=== PATIENT | male | born 1985 | race Caucasian/White ===

== ENCOUNTER 2017-07-06 12:37 | Inpatient (IN) | payer OTHER ==
[~2017-07-06] VITALS: Ht 182.9 cm; Wt 62.5 kg
--- NOTE | 2017-07-06 13:23 | EMERGENCY ROOM VISIT NOTE ---
History First contact with patient: 13:03 Chief Complaint: OTHER COMPLAINT Stated Complaint: NOTICED FOUND LUMPS AND PAIN History of Present Illness The patient is a 32 year old male who presents to the Emergency Room with complaints of painful masses in his groin that have been intermittent for the last several months. Occasionally they will get bigger and then decrease in size. The patient denies any urinary symptoms. He does note that sexual intercourse occasionally makes the pain worse. He denies any penile discharge. He denies any testicular pain. No fever or chills. He does have frequent night sweats. He has a mild cough, but that is because he is recovering from influenza. Review of Systems 10 system review performed and negative unless noted in HPI or below Past Medical/Surgical History Medical Problems: (1) Lymphadenopathy Otherwise healthy Family History Cancer, hypertension Social History Smoking Status: Current Every Day Smoker Alcohol Use: none Marital Status: Current/Historical Medications Miscellaneous Medications Ibuprofen (Advil), 200 MG PO Physical Exam Vital Signs Date Time Temp Pulse Resp B/P (MAP) Pulse Ox O2 Delivery O2 Flow Rate FiO2 07/06/17 15:59 77 18 122/72 100 Room Air 07/06/17 14:20 80 17 121/71 97 Room Air 07/06/17 12:57 36.9 103 18 117/74 98 Room Air Physical Exam VITALS: Vitals are noted on the nurse's note and reviewed by myself. Vital signs stable. GENERAL: 32-year-old male, in no acute distress, nondiaphoretic, well-developed well-nourished. SKIN: The skin was without rashes, erythema, edema, or bruising. HEAD: Normocephalic atraumatic. MOUTH: Mucous membranes moist. Tonsils are not enlarged. Pharynx without erythema or exudate. Uvula midline. Airway patent. Tongue does not deviate. NECK: Supple without nuchal rigidity. Submandibular lymphadenopathy noted bilaterally. Cervical spine is nontender. No JVD. HEART: Regular rate and rhythm without murmurs gallops or rubs. LUNGS: Clear to auscultation bilaterally without wheezes, rales or rhonchi. No accessory muscle use. ABDOMEN: Positive bowel sounds x 4.Soft, nontender, without organomegaly. No guarding or rebound tenderness. 2 palpable, mobile masses noted in the right groin approximately 1 cm in size. Slight tenderness to palpation noted. No erythema. MUSCULOSKELETAL: No muscle atrophy, erythema, or edema noted. Strength 5/5 throughout. NEURO: Patient was alert and oriented to person place and time. Normal sensation to touch. No focal neurological deficits. Medical Decision & Procedures ER Provider Diagnostic Interpretation: CXR IMPRESSION: 1. Patchy airspace consolidation is seen throughout both lungs, right greater than left. The appearance suggests pneumonia. Clinical correlation will be required and radiographic follow-up to resolution is recommended. 2. Suspect hilar adenopathy. Electronically signed by: Lam Hart M.D. 07/06/2017 2:13 PM Dictated Date/Time: 07/06/2017 2:12 PM The status of this report is Signed. Draft = Not yet reviewed or approved by Radiologist. Signed = Reviewed and approved by Radiologist. CT abd/pelvis IMPRESSION: Innumerable subcentimeter hepatic and splenic hypodense lesions with mild lymphadenopathy within the chest, abdomen, and pelvis and multiple nodular airspace opacities within the lung bases as described above. These findings suggest an atypical systemic infectious process including fungal or a bacterial process including tuberculosis. A lymphoma, metastatic disease, or possibly sarcoidosis could also have a similar appearance. Electronically signed by: Miky Johnson M.D. 07/06/2017 2:54 PM Dictated Date/Time: 07/06/2017 2:41 PM The status of this report is Signed. Draft = Not yet reviewed or approved by Radiologist. Signed = Reviewed and approved by Radiologist. <AttendingPhy></AttendingPhy> <FamilyPhy>No Doctor, Assigned</FamilyPhy> < PrimaryPhy>No Doctor, Assigned</PrimaryPhy> <UnitNumber>[id number]</UnitNumber> <VisitNumber>[id number]</VisitNumber> <PatientName>MIKY ORELLANA testicular US IMPRESSION: Slightly heterogenous bilateral testes. However, no intratesticular masses. Electronically signed by: Miky Johnson M.D. 07/06/2017 3:06 PM Dictated Date/Time: 07/06/2017 3:02 PM Laboratory Results 07/06/17 13:35 Red Blood Count 5.45, Mean Corpuscular Volume 88.3, Mean Corpuscular Hemoglobin 29.7, Mean Corpuscular Hemoglobin Concent 33.7, Mean Platelet Volume 9.2, Neutrophils (%) (Auto) 60.9, Lymphocytes (%) (Auto) 17.1, Monocytes (%) (Auto) 12.7, Eosinophils (%) (Auto) 8.1, Basophils (%) (Auto) 0.9, Neutrophils # (Auto ) 2.11, Lymphocytes # (Auto) 0.59, Monocytes # (Auto) 0.44, Eosinophils # (Auto ) 0.28, Basophils # (Auto) 0.03 07/06/17 13:35 Test 07/06/17 13:35 07/06/17 14:00 White Blood Count 3.46 K/uL (4.8-10.8) Red Blood Count 5.45 M/uL (4.7-6.1) Hemoglobin 16.2 g/dL (14.0-18.0) Hematocrit 48.1 % (42-52) Mean Corpuscular Volume 88.3 fL (80-100) Mean Corpuscular Hemoglobin 29.7 pg (25-34) Mean Corpuscular Hemoglobin Concent 33.7 g/dl (32-36) Platelet Count 246 K/uL (130-400) Mean Platelet Volume 9.2 fL (7.4-10.4) Neutrophils (%) (Auto) 60.9 % Lymphocytes (%) (Auto) 17.1 % Monocytes (%) (Auto) 12.7 % Eosinophils (%) (Auto) 8.1 % Basophils (%) (Auto) 0.9 % Neutrophils # (Auto) 2.11 K/uL (1.4-6.5) Lymphocytes # (Auto) 0.59 K/uL (1.2-3.4) Monocytes # (Auto) 0.44 K/uL (0.11-0.59) Eosinophils # (Auto) 0.28 K/uL (0-0.5) Basophils # (Auto) 0.03 K/uL (0-0.2) RDW Standard Deviation 42.3 fL (36.4-46.3) RDW Coefficient of Variation 13.1 % (11.5-14.5) Immature Granulocyte % (Auto) 0.3 % Immature Granulocyte # (Auto) 0.01 K/uL (0.00-0.02) Erythrocyte Sedimentation Rate 47 mm/hr (0-14) Prothrombin Time 11.1 SECONDS (9.0-12.0) Prothromb Time International Ratio 1.1 (0.9-1.1) Anion Gap 2.0 mmol/L (3-11) Est Creatinine Clear Calc Drug Dose 90.9 ml/min Estimated GFR () 109.9 Estimated GFR (Non- 94.8 BUN/Creatinine Ratio 9.2 (10-20) Calcium Level 9.0 mg/dl (8.5-10.1) Total Bilirubin 0.4 mg/dl (0.2-1) Aspartate Amino Transf (AST/SGOT) 43 U/L (15-37) Alanine Aminotransferase (ALT/SGPT) 45 U/L (12-78) Alkaline Phosphatase 337 U/L (45-117) Total Protein 8.8 gm/dl (6.4-8.2) Albumin 3.5 gm/dl (3.4-5.0) Globulin 5.3 gm/dl (2.5-4.0) Albumin/Globulin Ratio 0.7 (0.9-2) Procalcitonin 0.17 ng/ml (0-0.5) Urine Color YELLOW Urine Appearance CLEAR (CLEAR) Urine pH 6.5 (4.5-7.5) Urine Specific [place] 1.016 (1.000-1.030) Urine Protein NEG (NEG) Urine Glucose (UA) NEG (NEG) Urine Ketones NEG (NEG) Urine Occult Blood NEG (NEG) Urine Nitrite NEG (NEG) Urine Bilirubin NEG (NEG) Urine Urobilinogen NEG (NEG) Urine Leukocyte Esterase NEG (NEG) Medications Administered Medications (Trade) Dose Ordered Sig/Xuan Route Start Time Stop Time Status Last Admin Dose Admin Ibuprofen (Motrin Tab) 600 mg NOW STAT PO 07/06/17 16:06 07/06/17 16:07 DC 07/06/17 16:21 600 MG ED Course Patient was seen and examined Vital signs including blood pressure were reviewed medications list was verified with patient Labs were obtained, and a saline lock was established Imaging was performed and reviewed The patient was reassessed and resting comfortably. We discussed his results. He voiced understanding. The case was discussed with my supervising physician. It was then discussed with radiology. I discussed the case with case management and subsequently the [facility] team who kindly agreed to admit the patient for further workup and treatment Medical Decision Differential diagnosis: Lymphadenitis, infectious etiology, malignancy, benign lymphadenopathy This patient is a 32-year-old male presents to the emergency department with lymphadenopathy in his groin and night sweats. He is nontoxic in appearance. He is afebrile. He has had a cough for the last several weeks. His imaging shows pulmonary consolidations. There are also numerous lesions in the liver and spleen. Lymphadenopathy noted throughout. There is no leukocytosis. The etiology of the imaging is possibly malignancy versus sarcoidosis versus a bacterial/fungal infection. Given the fact that the patient does not have a PCP , I do not feel comfortable sending the patient out. I do not think that he will follow-up with a doctor. The patient will be admitted to the [facility] for further workup and treatment. This chart was completed in part utilizing [employer] Speech Voice Recognition software. Attempts were made to minimize the grammatical errors, random word insertions, pronoun errors and incomplete sentences. Any formal questions or concerns about the content, text or information contained within the body of this dictation should be directly addressed to the provider for clarification. Medication Reconcilliation Current Medication List: was personally reviewed by ar Blood Pressure Screening Patient's blood pressure: Normal blood pressure Consults Consulting Physician: [facility] Impression Primary Impression: Lymphadenopathy Departure Information Referrals No Doctor, Assigned (PCP) Patient Instructions My [facility]
[2017-07-06] MEDS ORDERED: IBUP-1050 PO (13:29)
[2017-07-06] MEDS ORDERED: OPTIRAY 320 IV PRN (13:30)
[2017-07-06 13:46] LABS: BASO % 0.9 %; BASO ABS # 0.03 K/uL (0-0.2); EOS % 8.1 %; EOS ABS # 0.28 K/uL (0-0.5); HEMATOCRIT 48.1 % (42-52); HEMOGLOBIN 16.2 g/dL (14.0-18.0); IG# 0.01 K/uL (0.00-0.02); LYMPH % 17.1 %; LYMPH ABS # 0.59 K/uL (1.2-3.4); MEAN CELL VOLUME 88.3 fL (80-100); MEAN CORPUSCULAR HEMOGLOBIN 29.7 pg (25-34); MEAN CORPUSCULAR HGB CONC 33.7 g/dl (32-36); MEAN PLATELET VOLUME 9.2 fL (7.4-10.4); MONO % 12.7 %; MONO ABS # 0.44 K/uL (0.11-0.59); NEUT % 60.9 %; NEUT ABS # 2.11 K/uL (1.4-6.5); PLATELET COUNT 246 K/uL (130-400); RED CELL DISTRIBUTION WIDTH CV 13.1 % (11.5-14.5); RED CELL DISTRIBUTION WIDTH SD 42.3 fL (36.4-46.3); WHITE BLOOD COUNT 3.46 K/uL (4.8-10.8)
[2017-07-06 14:07] LABS: ALBUMIN 3.5 gm/dl (3.4-5.0); CREATININE 1.05 mg/dl (0.60-1.40); POTASSIUM 4.6 mmol/L (3.5-5.1)
[2017-07-06 14:10] LABS: TOTAL PROTEIN 8.8 gm/dl (6.4-8.2)
--- NOTE | 2017-07-06 14:14 | DIAGNOSTIC IMAGING REPORT ---
TWO VIEW CHEST CLINICAL HISTORY: Lymphadenopathy. Night sweats. FINDINGS: PA and lateral chest radiographs are obtained. No prior studies are available for comparison at the time of dictation. The heart is normal in size. Fullness of the derick suggests lymphadenopathy. Patchy airspace consolidation is identified throughout the right lung. Patchy airspace opacities are also seen in the left upper and left lower lung. No pleural effusion is identified. There is no pneumothorax. The bony thorax appears intact. IMPRESSION: 1. Patchy airspace consolidation is seen throughout both lungs, right greater than left. The appearance suggests pneumonia. Clinical correlation will be required and radiographic follow-up to resolution is recommended. 2. Suspect hilar adenopathy. Electronically signed by: Lam Hart M.D. 07/06/2017 2:13 PM Dictated Date/Time: 07/06/2017 2:12 PM
--- NOTE | 2017-07-06 14:56 | DIAGNOSTIC IMAGING REPORT ---
ABDOMEN AND PELVIS CT WITH IV CONTRAST CT DOSE: 321.43 mGycm HISTORY: lymphadenopathy in groin, night sweats TECHNIQUE: Multiaxial CT images of the abdomen and pelvis were performed following the use of intravenous contrast. A dose lowering technique was utilized adhering to the principles of ALARA. COMPARISON STUDY: Chest 07/06/2017. FINDINGS: Multiple tree-in-bud nodular opacities seen throughout the lung bases and a few scattered irregular nodular airspace opacities seen within the lung bases. Dominant irregular nodule seen within the right lower lobe measures 14 mm. No pneumoperitoneum. No pneumatosis. No suspicious lytic or blastic osseous lesions. There is enlarged anterior pericardial lymph node measuring 18 x 1 cm. There are few prominent pleural/paravertebral lymph nodes with the largest on the right on image 33 measuring 12 x 6 mm. There are innumerable subcentimeter hypodense lesions seen scattered throughout the liver and spleen. The pancreas, adrenal glands, and kidneys are unremarkable. No hydronephrosis. There is periportal lymphadenopathy. Dominant periportal lymph node measures 2.5 x 1.8 cm. Mildly enlarged retroperitoneal lymphadenopathy. There are few mildly enlarged bilateral external iliac and inguinal lymph nodes. Dominant left external iliac lymph node measures 2.1 x 1.2 cm. Normal bladder. No pelvic free fluid. No bowel wall thickening or obstruction. Normal appendix. IMPRESSION: Innumerable subcentimeter hepatic and splenic hypodense lesions with mild lymphadenopathy within the chest, abdomen, and pelvis and multiple nodular airspace opacities within the lung bases as described above. These findings suggest an atypical systemic infectious process including fungal or a bacterial process including tuberculosis. A lymphoma, metastatic disease, or possibly sarcoidosis could also have a similar appearance. Electronically signed by: Miky Johnson M.D. 07/06/2017 2:54 PM Dictated Date/Time: 07/06/2017 2:41 PM
--- NOTE | 2017-07-06 15:07 | DIAGNOSTIC IMAGING REPORT ---
TESTICULAR ULTRASOUND HISTORY: Lymphadenopathy in groin, testicular pain COMPARISON: None. FINDINGS: Right testis: 4.2 x 2.2 x 2.3 cm. Slightly heterogeneous, however, there are no intratesticular masses. Normal color flow. No hydrocele. The epididymis is unremarkable. Left testis: 4.1 x 2.5 x 1.9 cm. Slightly heterogeneous, however, there are no intratesticular masses. Normal color flow. No hydrocele. The epididymis is unremarkable. IMPRESSION: Slightly heterogenous bilateral testes. However, no intratesticular masses. Electronically signed by: Miky Johnson M.D. 07/06/2017 3:06 PM Dictated Date/Time: 07/06/2017 3:02 PM
[2017-07-06] MEDS ORDERED: IBUPROFEN 600 MG TAB PO STA (16:06)
[2017-07-06] MEDS ORDERED: ONDANSETRON INJ 2 MG/ML 2 ML VIAL IV PRN (16:45)
[2017-07-06] MEDS ORDERED: MAGNESIUM HYDROXIDE SUSP 30 ML UDC PO PRN (16:45)
[2017-07-06] MEDS ORDERED: ZOLPIDEM TARTRATE 5 MG TAB PO PRN (16:45)
[2017-07-06] MEDS ORDERED: ALUMINUM/MAGNESIUM/SIMETH (MAALOX MAX) 30 ML UDC PO PRN (16:45)
[2017-07-06] MEDS ORDERED: POLYETHYLENE (MIRALAX) 17 GM PACK PO PRN (16:45)
[2017-07-06 17:10] LABS: INR 1.1 (0.9-1.1)
--- NOTE | 2017-07-06 17:18 | History and Physical ---
History & Physical Date & Time of Service: Jul 06, 2017 at 17:15 Chief Complaint: Noticed Found Lumps And Pain Primary Care Physician: No Doctor, Assigned History of Present Illness Source: patient This is a 32-year-old male with no known prior medical history. Has not been following with any physician in the past 20 years. ER for evaluation of painful swelling nodes on right inguinal region. Patient mentions he had swelling approximately 6-7 years ago and then they disappeared. For the last few weeks he noticed more weak and fatigue night sweats intermitted fever chills. Developed very painful lymphadenopathy on the right groin region pain radiation radiates down to his scrotum and also inner part of the right thigh. Patient denies of any trauma or injury. Was diagnosed with influenza a week ago evaluated at urgent care , completed Tamiflu Continues to have dry cough persistent malaise weakness ,body aches and joint pain. CT abdomen pelvis contrast study done in the ER showed multiple less than centimeter hepatic and splenic hypodense lesion, with lymphadenopathy in the chest abdomen and pelvis concerned for lymphoma versus sarcoidosis. Testicular ultrasound was negative for any mass. Patient denies of any recent travel history Denies of history of intravenous drug abuse Was in [facility] as a teenager At present unemployed smokes a pack of cigarettes a day for last 10-15 years Chews tobacco Social History Smoking Status: Current Every Day Smoker Marital Status: Allergies Coded Allergies: Mushroom (Unverified Allergy, Severe, THROAT SWELLING, 09/23/15) Tramadol (Unverified Allergy, Severe, SEVERE VOMITING, 09/23/15) Home Medications Miscellaneous Medications Ibuprofen (Advil), 200 MG PO Review of Systems Constitutional: + chills, + sweats, + weight loss, + weakness, + fatigue Respiratory: + cough (Dry nonproductive), + shortness of breath Cardiovascular: No chest pain, No orthopnea, No PND, No edema, No claudication , No palpitations, No problem reported Musculoskeletal: + joint pain, + muscle pain Genitourinary - Male: No hematuria, No dysuria, No urinary frequency, No urinary urgency, No urinary hesitancy, No urinary retention, No urinary incontinence, No penile discharge, No lesions, No impotence, No problem reported Neurologic: + weakness Psychiatric: + anxiety Endocrine: + fatigue Hematologic / Lymphatic: + swollen lymph nodes (Painful swollen right inguinal area lymphadenopathy), + night sweats Physical Exam Vital Signs Date Time Temp Pulse Resp B/P (MAP) Pulse Ox O2 Delivery O2 Flow Rate FiO2 07/06/17 15:59 77 18 122/72 100 Room Air 07/06/17 14:20 80 17 121/71 97 Room Air 07/06/17 12:57 36.9 103 18 117/74 98 Room Air General Appearance: no apparent distress, + thin Head: normocephalic, atraumatic Eyes: normal inspection, PERRL, EOMI, sclerae normal ENT: normal ENT inspection, hearing grossly normal Neck: + adenopathy present (History of cervical adenopathy) Respiratory/Chest: chest non-tender, lungs clear, normal breath sounds, no respiratory distress Cardiovascular: regular rate, rhythm, no edema, no JVD, no murmur Abdomen/GI: normal bowel sounds, non tender, soft Back: no CVA tenderness Extremities/Musculoskelatal: normal capillary refill, no pedal edema Neurologic/Psych: no motor/sensory deficits, alert, oriented x 3, + depressed affect Lymphatic: + axillary node abnormality, + cervical node abnormality, + inguinal node abnormality (Right inguinal area and multiple lymph nodes/tender to palpate /no overlying skin erythema noted) Diagnostics Laboratory Results Results Past 24 Hours Test 07/06/17 13:35 07/06/17 14:00 Range/Units White Blood Count 3.46 4.8-10.8 K/uL Red Blood Count 5.45 4.7-6.1 M/uL Hemoglobin 16.2 14.0-18.0 g/dL Hematocrit 48.1 42-52 % Mean Corpuscular Volume 88.3 80-100 fL Mean Corpuscular Hemoglobin 29.7 25-34 pg Mean Corpuscular Hemoglobin Concent 33.7 32-36 g/dl Platelet Count 246 130-400 K/uL Mean Platelet Volume 9.2 7.4-10.4 fL Neutrophils (%) (Auto) 60.9 % Lymphocytes (%) (Auto) 17.1 % Monocytes (%) (Auto) 12.7 % Eosinophils (%) (Auto) 8.1 % Basophils (%) (Auto) 0.9 % Neutrophils # (Auto) 2.11 1.4-6.5 K/uL Lymphocytes # (Auto) 0.59 1.2-3.4 K/uL Monocytes # (Auto) 0.44 0.11-0.59 K/uL Eosinophils # (Auto) 0.28 0-0.5 K/uL Basophils # (Auto) 0.03 0-0.2 K/uL RDW Standard Deviation 42.3 36.4-46.3 fL RDW Coefficient of Variation 13.1 11.5-14.5 % Immature Granulocyte % (Auto) 0.3 % Immature Granulocyte # (Auto) 0.01 0.00-0.02 K/uL Erythrocyte Sedimentation Rate 47 0-14 mm/hr Prothrombin Time 11.1 9.0-12.0 SECONDS Prothromb Time International Ratio 1.1 0.9-1.1 Sodium Level 134 136-145 mmol/L Potassium Level 4.6 3.5-5.1 mmol/L Chloride Level 101 98-107 mmol/L Carbon Dioxide Level 31 21-32 mmol/L Anion Gap 2.0 3-11 mmol/L Blood Urea Nitrogen 10 7-18 mg/dl Creatinine 1.05 0.60-1.40 mg/dl Est Creatinine Clear Calc Drug Dose 90.9 ml/min Estimated GFR () 109.9 Estimated GFR (Non- 94.8 BUN/Creatinine Ratio 9.2 10-20 Random Glucose 73 70-99 mg/dl Calcium Level 9.0 8.5-10.1 mg/dl Total Bilirubin 0.4 0.2-1 mg/dl Aspartate Amino Transf (AST/SGOT) 43 15-37 U/L Alanine Aminotransferase (ALT/SGPT) 45 12-78 U/L Alkaline Phosphatase 337 45-117 U/L Total Protein 8.8 6.4-8.2 gm/dl Albumin 3.5 3.4-5.0 gm/dl Globulin 5.3 2.5-4.0 gm/dl Albumin/Globulin Ratio 0.7 0.9-2 Urine Color YELLOW Urine Appearance CLEAR CLEAR Urine pH 6.5 4.5-7.5 Urine Specific [place] 1.016 1.000-1.030 Urine Protein NEG NEG Urine Glucose (UA) NEG NEG Urine Ketones NEG NEG Urine Occult Blood NEG NEG Urine Nitrite NEG NEG Urine Bilirubin NEG NEG Urine Urobilinogen NEG NEG Urine Leukocyte Esterase NEG NEG Microbiology Results 07/06/17 Blood Culture, Ordered Pending 07/06/17 Blood Culture, Ordered Pending Diagnostic Radiology CT CHEST WITH CONTRAST : IMPRESSION: 1. Innumerable perilymphatic distribution of pulmonary nodules throughout all lobes of the lungs bilaterally are noted within an upper and mid lung zone predominant distribution with confluent nodules forming multifocal areas of consolidation. These findings in addition to enlarged subpectoral, axillary, mediastinal and hilar adenopathy is suspicious for sarcoidosis. Additional differential considerations would include but are not limited to lymphangitic carcinomatosis from unknown primary neoplasm or lymphocytic interstitial pneumonia among other etiologies. 2. Heterogeneous appearance of the liver and spleen correlates with innumerable hypoattenuating lesions seen on CT abdomen and pelvis of same day. ABDOMEN AND PELVIS CT WITH IV CONTRAST CT DOSE: 321.43 mGycm HISTORY: lymphadenopathy in groin, night sweats TECHNIQUE: Multiaxial CT images of the abdomen and pelvis were performed following the use of intravenous contrast. A dose lowering technique was utilized adhering to the principles of ALARA. COMPARISON STUDY: Chest 07/06/2017. FINDINGS: Multiple tree-in-bud nodular opacities seen throughout the lung bases and a few scattered irregular nodular airspace opacities seen within the lung bases. Dominant irregular nodule seen within the right lower lobe measures 14 mm. No pneumoperitoneum. No pneumatosis. No suspicious lytic or blastic osseous lesions. There is enlarged anterior pericardial lymph node measuring 18 x 1 cm. There are few prominent pleural/paravertebral lymph nodes with the largest on the right on image 33 measuring 12 x 6 mm. There are innumerable subcentimeter hypodense lesions seen scattered throughout the liver and spleen. The pancreas, adrenal glands, and kidneys are unremarkable. No hydronephrosis. There is periportal lymphadenopathy. Dominant periportal lymph node measures 2.5 x 1.8 cm. Mildly enlarged retroperitoneal lymphadenopathy. There are few mildly enlarged bilateral external iliac and inguinal lymph nodes. Dominant left external iliac lymph node measures 2.1 x 1.2 cm. Normal bladder. No pelvic free fluid. No bowel wall thickening or obstruction. Normal appendix. IMPRESSION: Innumerable subcentimeter hepatic and splenic hypodense lesions with mild lymphadenopathy within the chest, abdomen, and pelvis and multiple nodular airspace opacities within the lung bases as described above. These findings suggest an atypical systemic infectious process including fungal or a bacterial process including tuberculosis. A lymphoma, metastatic disease, or possibly sarcoidosis could also have a similar appearance. Electronically signed by: Miky Johnson M.D. 07/06/2017 2:54 PM Dictated Date/Time: 07/06/2017 2:41 PM X-ray TWO VIEW CHEST CLINICAL HISTORY: Lymphadenopathy. Night sweats. FINDINGS: PA and lateral chest radiographs are obtained. No prior studies are available for comparison at the time of dictation. The heart is normal in size. Fullness of the derick suggests lymphadenopathy. Patchy airspace consolidation is identified throughout the right lung. Patchy airspace opacities are also seen in the left upper and left lower lung. No pleural effusion is identified. There is no pneumothorax. The bony thorax appears intact. IMPRESSION: 1. Patchy airspace consolidation is seen throughout both lungs, right greater than left. The appearance suggests pneumonia. Clinical correlation will be required and radiographic follow-up to resolution is recommended. 2. Suspect hilar adenopathy. TESTICULAR ULTRASOUND HISTORY: Lymphadenopathy in groin, testicular pain COMPARISON: None. FINDINGS: Right testis: 4.2 x 2.2 x 2.3 cm. Slightly heterogeneous, however, there are no intratesticular masses. Normal color flow. No hydrocele. The epididymis is unremarkable. Left testis: 4.1 x 2.5 x 1.9 cm. Slightly heterogeneous, however, there are no intratesticular masses. Normal color flow. No hydrocele. The epididymis is unremarkable. IMPRESSION: Slightly heterogenous bilateral testes. However, no intratesticular masses. Impression Assessment and Plan 1.Generalized lymphadenopathy: -Presented with months of weakness fatigue night sweats -Painful right groin lymphadenopathy -CT of abdomen chest findings as above - will need lymph node biopsy to confirm diagnosis of sarcoidosis versus lymphoma versus infectious process -Ordered for HIV hep C tuberculosis test -Heme on evaluation requested -Peripheral blood smear in a.m. lab 1.Hyponatremia: Possible secondary to dehydration Ordered ordered for IV fluids with normal saline Repeat BMP in a.m. 3. Nonproductive cough. CT chest shows possible bronchitis with tree-in-bud appearance Report of ongoing fever chills/cough Order for empiric antibiotic with Rocephin and Zithromax -Ordered sputum and blood culture CODE STATUS full code DVT prophylaxis: Subcu Lovenox Disposition: Expected to be discharged home when medically stable Will need continued outpatient hematology/oncology follow-up We will need to established with family physician to address ongoing medical issues Level of Care Med/Surg Resuscitation Status FULL RESUSCITATION VTE Prophylaxis VTE Risk Assessment Done? Y/N: Yes Risk Level: Moderate Given or contraindicated: Enoxaparin (Lovenox)SQ Additional Copies To Davina Alegria MD
--- NOTE | 2017-07-06 17:52 | DIAGNOSTIC IMAGING REPORT ---
(CHEST) THORAX WITHOUT CT DOSE: 266.32 mGy.cm CLINICAL HISTORY: 32 years-old Male with GOT IV CONTRAST FOR CT ABDOMEN/PELVIS . Follow-up study in a patient with lymphadenopathy and night sweats TECHNIQUE: Multiaxial CT images of the chest were performed without contrast. A dose lowering technique was utilized adhering to the principles of ALARA. COMPARISON: CT abdomen and pelvis, chest radiographs and testicular ultrasound of same day FINDINGS: Thyroid is homogeneous. Multiple enlarged bilateral subpectoral, axillary, mediastinal and hilar adenopathy. For example, conglomerate right hilar adenopathy measures up to 3.6 x 2.2 cm on image 149 series 4. Enlarged right paratracheal lymph nodes measure up to 2.0 x 1.4 cm on image 81 of series 4. Enlarged prevascular and AP window lymph nodes are present Prominent subpleural lymph nodes of the level the medial right lung base are also noted measuring up to 5 mm in short axis. Heart is normal in size without pericardial effusion. Thoracic aorta appears normal in course and caliber. The unopacified pulmonary chill tree is unremarkable. There is no pleural effusion or pneumothorax. There are innumerable lymphatic distribution of pulmonary nodules throughout the all lobes within the bilaterally which are seen layering along the fissures and bronchovascular bundles. Many of these nodules conglomerate to make small consolidative type opacities, measuring up to 1.3 x 0.9 cm within the right lower lobe, image 243 series 4. There is somewhat of an upper lung zone predominant distribution of these nodules. No cavitary lung lesions are identified. The central airways appear patent. Diffusely heterogeneous appearance of the liver and spleen correlates with the previously described innumerable low attenuating lesions seen on comparison CT abdomen and pelvis of same day. There is retained contrast within the left renal collecting system without definite hydronephrosis. Adenopathy of the upper abdomen noted in addition to epicardial lymph nodes measuring up to 1.7 x 0.8 cm. Soft tissues are unremarkable with mild bilateral gynecomastia. No suspicious bony lesions identified. IMPRESSION: 1. Innumerable perilymphatic distribution of pulmonary nodules throughout all lobes of the lungs bilaterally are noted within an upper and mid lung zone predominant distribution with confluent nodules forming multifocal areas of consolidation. These findings in addition to enlarged subpectoral, axillary, mediastinal and hilar adenopathy is suspicious for sarcoidosis. Additional differential considerations would include but are not limited to lymphangitic carcinomatosis from unknown primary neoplasm or lymphocytic interstitial pneumonia among other etiologies. 2. Heterogeneous appearance of the liver and spleen correlates with innumerable hypoattenuating lesions seen on CT abdomen and pelvis of same day. Electronically signed by: Vlad Valdez M.D. 07/06/2017 5:51 PM Dictated Date/Time: 07/06/2017 5:37 PM
[2017-07-06] MEDS: SODIUM CHLORIDE 0.9% 1000ML 1,000 ML IV SCH (18:37)
[2017-07-06 18:57] VITALS: BP 107/72; PULSE 70; TEMP 37; O2SAT 96; Ht 182.9 cm; Wt 62.5 kg
[2017-07-06] MEDS ORDERED: CEFTRIAXONE SOD INJ 1 GM in DEXTROSE 5% ADD-VANTAGE 50ML 50 ML IV SCH (19:00)
[2017-07-06 19:02] VITALS: BP 107/72; PULSE 70; TEMP 37; O2SAT 96
[2017-07-06] MEDS: ACETAMINOPHEN 325 MG TAB PO PRN (19:55)
[2017-07-06] MEDS: AZITHROMYCIN 250 MG TAB PO SCH (19:56)
[2017-07-06] MEDS ORDERED: ENOXAPARIN 40 MG/0.4 ML SYR SQ SCH (21:00)
[2017-07-06 23:55] VITALS: BP 111/72; PULSE 67; TEMP 36.7; O2SAT 96
[2017-07-07] MEDS: SODIUM CHLORIDE 0.9% 1000ML 1,000 ML IV SCH (03:53)
[2017-07-07 05:42] LABS: HEMATOCRIT 42.9 % (42-52); HEMOGLOBIN 14.7 g/dL (14.0-18.0); MEAN CELL VOLUME 87.7 fL (80-100); MEAN CORPUSCULAR HEMOGLOBIN 30.1 pg (25-34); MEAN CORPUSCULAR HGB CONC 34.3 g/dl (32-36); MEAN PLATELET VOLUME 8.7 fL (7.4-10.4); PLATELET COUNT 198 K/uL (130-400); RED CELL DISTRIBUTION WIDTH CV 13.1 % (11.5-14.5); RED CELL DISTRIBUTION WIDTH SD 42.1 fL (36.4-46.3); WHITE BLOOD COUNT 3.52 K/uL (4.8-10.8)
[2017-07-07 06:14] LABS: ALBUMIN 3.1 gm/dl (3.4-5.0); ALT/SGPT 41 U/L (12-78); AST/SGOT 42 U/L (15-37); BLOOD UREA NITROGEN 15 mg/dl (7-18); CALCIUM 8.3 mg/dl (8.5-10.1); CARBON DIOXIDE 31 mmol/L (21-32); CREATININE 1.07 mg/dl (0.60-1.40); GLUCOSE 79 mg/dl (70-99); POTASSIUM 4.6 mmol/L (3.5-5.1); SODIUM 136 mmol/L (136-145); URIC ACID 4.5 mg/dl (2.6-7.2)
[2017-07-07 06:16] LABS: ALKALINE PHOSPHATASE 306 U/L (45-117)
[2017-07-07 07:52] VITALS: BP 105/69; PULSE 72; TEMP 36.4; O2SAT 97
[2017-07-07] MEDS: AZITHROMYCIN 250 MG TAB PO SCH (07:59)
[2017-07-07] MEDS: ACETAMINOPHEN 325 MG TAB PO PRN ×2 (08:04→16:15)
[2017-07-07 08:17] VITALS: O2SAT 97
[2017-07-07 08:41] LABS: HEP C IGG 13 YRS+OLDER_RFLX NEG (NEG)
--- NOTE | 2017-07-07 14:16 | Surgery Consultation ---
Consultation Date of Consultation: Jul 07, 2017. Attending Physician: Ashtyn Pedroza M.D. Reason for Consultation: The patient is a 32 year old male who presents to the Emergency Room with complaints of painful masses in his groin that have been intermittent for the last several months. Occasionally they will get bigger and then decrease in size. The patient denies any urinary symptoms. He does note that sexual intercourse occasionally makes the pain worse. He denies any penile discharge. He denies any testicular pain. No fever or chills. He does have frequent night sweats. He has a mild cough, but that is because he is recovering from influenza. I got a call for consult biopsy enlarge lymph node at right groin, I saw pt at bedside, I reviewed pt's H/P with pt, pt had right groin large lymph node for 6- 7 years, pt has some night sweat, no weight loss, no diarrhea, no cough, Social History Smoking Status: Current Every Day Smoker (one pack/day) Smokeless Tobacco Use: No Alcohol Use: occasionally Drug Use: none Marital Status: Allergies Coded Allergies: Mushroom (Unverified Allergy, Severe, THROAT SWELLING, 09/23/15) Tramadol (Unverified Allergy, Severe, SEVERE VOMITING, 09/23/15) Home Medications Miscellaneous Medications Ibuprofen (Advil), 200 MG PO Current Inpatient Medications Current Inpatient Medications Medications (Trade) Dose Ordered Sig/Xuan Route Start Time Stop Time Status Last Admin Dose Admin Ioversol (Optiray 320) 111 ml UD PRN IV 07/06/17 13:30 07/10/17 13:29 Enoxaparin Sodium (Lovenox Inj) 40 mg QPM SQ 07/06/17 21:00 08/05/17 20:59 Acetaminophen (Tylenol Tab) 650 mg Q4H PRN PO 07/06/17 16:45 08/05/17 16:44 07/07/17 08:04 650 MG Al Hydrox/Mg Hydrox/Simethicone (Maalox Max Susp) 15 ml Q4H PRN PO 07/06/17 16:45 08/05/17 16:44 Magnesium Hydroxide (Milk Of Magnesia Susp) 30 ml Q6H PRN PO 07/06/17 16:45 08/05/17 16:44 Polyethylene (Miralax Powder Packet) 17 gm DAILY PRN PO 07/06/17 16:45 08/05/17 16:44 Zolpidem Tartrate (Ambien Tab) 5 mg HSZ PRN PO 07/06/17 16:45 08/05/17 16:44 Ondansetron HCl (Zofran Inj) 4 mg Q6H PRN IV 07/06/17 16:45 08/05/17 16:44 Azithromycin (Zithromax Tab) 500 mg QAM PO 07/06/17 20:00 07/13/17 19:59 07/07/17 07:59 500 MG Prednisone (PredniSONE TAB) 40 mg DAILY PO 07/07/17 08:00 08/06/17 07:59 07/07/17 07:59 40 MG Nicotine (Nicoderm Cq 21MG Patch) 1 patch QAM TD 07/07/17 14:00 08/06/17 13:59 Miscellaneous (Remove Nicoderm Patch) 1 ea HS N/A 07/07/17 21:00 08/06/17 20:59 Review of Systems Constitutional: + sweats Eyes: No worsening of vision, No eye pain, No redness, No discharge, No diplopia, No problem reported ENT: No hearing loss, No unusual epistaxis, No nasal symptoms, No sore throat, No tinnitus, No dental problems, No trouble swallowing, No problem reported Respiratory: No cough, No sputum, No wheezing, No shortness of breath, No dyspnea on exertion, No dyspnea at rest, No hemoptysis, No problem reported Cardiovascular: No chest pain, No orthopnea, No PND, No edema, No claudication , No palpitations, No problem reported Abdomen: No pain, No nausea, No vomiting, No diarrhea, No constipation, No GI bleeding, No problem reported Musculoskeletal: No joint pain, No muscle pain, No swelling, No calf pain, No problem reported Genitourinary - Male: No hematuria, No dysuria, No urinary frequency, No urinary urgency, No urinary hesitancy, No urinary retention, No urinary incontinence, No penile discharge, No lesions, No impotence, No problem reported Neurologic: No memory loss, No paralysis, No weakness, No numbness/tingling, No vertigo, No balance problems, No problem reported Psychiatric: No depression symptoms, No anhedonism, No anxiety, No insomnia, No substance abuse, No problem reported Endocrine: No fatigue, No excessive thirst, No excessive urination, No problem reported Hematologic / Lymphatic: No abnormal bleeding/bruising, No clotting problems, No swollen lymph nodes, No night sweats, No problem reported Physical Exam Date Time Temp Pulse Resp B/P (MAP) Pulse Ox O2 Delivery O2 Flow Rate FiO2 07/07/17 08:17 97 Room Air 07/07/17 07:52 36.4 72 18 105/69 (81) 97 Room Air 07/07/17 00:00 Room Air 07/06/17 23:55 36.7 67 18 111/72 (85) 96 Room Air 07/06/17 19:02 37.0 70 18 107/72 (84) 96 Room Air 07/06/17 18:57 37.0 70 18 107/72 96 Room Air 07/06/17 17:56 75 18 109/77 99 Room Air 07/06/17 15:59 77 18 122/72 100 Room Air 07/06/17 14:20 80 17 121/71 97 Room Air General Appearance: WD/WN, no apparent distress Eyes: normal inspection ENT: normal ENT inspection Neck: supple, no adenopathy Respiratory/Chest: chest non-tender, lungs clear Cardiovascular: regular rate, rhythm, no edema, no gallop, no JVD, no murmur Abdomen/GI: normal bowel sounds, non tender, soft, no organomegaly, no pulsatile mass (enlarge right groin lymph nodes , size 2x2cm, some tenderness, no redmness, ) Extremities/Musculoskelatal: normal inspection, no calf tenderness, normal capillary refill Neurologic/Psych: no motor/sensory deficits, alert, normal mood/affect Skin: normal color, warm/dry, no rash Lymphatic: + inguinal node abnormality Laboratory Results Last 24 Hours Test 07/07/17 05:20 White Blood Count 3.52 K/uL Red Blood Count 4.89 M/uL Hemoglobin 14.7 g/dL Hematocrit 42.9 % Mean Corpuscular Volume 87.7 fL Mean Corpuscular Hemoglobin 30.1 pg Mean Corpuscular Hemoglobin Concent 34.3 g/dl RDW Standard Deviation 42.1 fL RDW Coefficient of Variation 13.1 % Platelet Count 198 K/uL Mean Platelet Volume 8.7 fL Peripheral Blood Smear Path Consult Sodium Level 136 mmol/L Potassium Level 4.6 mmol/L Chloride Level 104 mmol/L Carbon Dioxide Level 31 mmol/L Anion Gap 2.0 mmol/L Blood Urea Nitrogen 15 mg/dl Creatinine 1.07 mg/dl Est Creatinine Clear Calc Drug Dose 89.2 ml/min Estimated GFR () 107.4 Estimated GFR (Non- 92.7 BUN/Creatinine Ratio 14.0 Random Glucose 79 mg/dl Uric Acid 4.5 mg/dl Calcium Level 8.3 mg/dl Total Bilirubin 0.4 mg/dl Direct Bilirubin < 0.1 mg/dl Aspartate Amino Transf (AST/SGOT) 42 U/L Alanine Aminotransferase (ALT/SGPT) 41 U/L Alkaline Phosphatase 306 U/L Lactate Dehydrogenase 243 U/L Total Protein 8.0 gm/dl Albumin 3.1 gm/dl Globulin 4.9 gm/dl Albumin/Globulin Ratio 0.6 Hepatitis B Surface Antigen NEG Hepatitis C Antibody NEG Assessment & Plan CT scan-FINDINGS: Multiple tree-in-bud nodular opacities seen throughout the lung bases and a few scattered irregular nodular airspace opacities seen within the lung bases. Dominant irregular nodule seen within the right lower lobe measures 14 mm. No pneumoperitoneum. No pneumatosis. No suspicious lytic or blastic osseous lesions. There is enlarged anterior pericardial lymph node measuring 18 x 1 cm. There are few prominent pleural/paravertebral lymph nodes with the largest on the right on image 33 measuring 12 x 6 mm. There are innumerable subcentimeter hypodense lesions seen scattered throughout the liver and spleen. The pancreas, adrenal glands, and kidneys are unremarkable. No hydronephrosis. There is periportal lymphadenopathy. Dominant periportal lymph node measures 2.5 x 1.8 cm. Mildly enlarged retroperitoneal lymphadenopathy. There are few mildly enlarged bilateral external iliac and inguinal lymph nodes. Dominant left external iliac lymph node measures 2.1 x 1.2 cm. Normal bladder. No pelvic free fluid. No bowel wall thickening or obstruction. Normal appendix. IMPRESSION: Innumerable subcentimeter hepatic and splenic hypodense lesions with mild lymphadenopathy within the chest, abdomen, and pelvis and multiple nodular airspace opacities within the lung bases as described above. These findings suggest an atypical systemic infectious process including fungal or a bacterial process including tuberculosis. A lymphoma, metastatic disease, or possibly sarcoidosis could also have a similar appearance. U/S study-FINDINGS: Right testis: 4.2 x 2.2 x 2.3 cm. Slightly heterogeneous, however, there are no intratesticular masses. Normal color flow. No hydrocele. The epididymis is unremarkable. Left testis: 4.1 x 2.5 x 1.9 cm. Slightly heterogeneous, however, there are no intratesticular masses. Normal color flow. No hydrocele. The epididymis is unremarkable. IMPRESSION: Slightly heterogenous bilateral testes. However, no intratesticular masses. CT scan- chest-FINDINGS: Thyroid is homogeneous. Multiple enlarged bilateral subpectoral, axillary, mediastinal and hilar adenopathy. For example, conglomerate right hilar adenopathy measures up to 3.6 x 2.2 cm on image 149 series 4. Enlarged right paratracheal lymph nodes measure up to 2.0 x 1.4 cm on image 81 of series 4. Enlarged prevascular and AP window lymph nodes are present Prominent subpleural lymph nodes of the level the medial right lung base are also noted measuring up to 5 mm in short axis. Heart is normal in size without pericardial effusion. Thoracic aorta appears normal in course and caliber. The unopacified pulmonary chill tree is unremarkable. There is no pleural effusion or pneumothorax. There are innumerable lymphatic distribution of pulmonary nodules throughout the all lobes within the bilaterally which are seen layering along the fissures and bronchovascular bundles. Many of these nodules conglomerate to make small consolidative type opacities, measuring up to 1.3 x 0.9 cm within the right lower lobe, image 243 series 4. There is somewhat of an upper lung zone predominant distribution of these nodules. No cavitary lung lesions are identified. The central airways appear patent. Diffusely heterogeneous appearance of the liver and spleen correlates with the previously described innumerable low attenuating lesions seen on comparison CT abdomen and pelvis of same day. There is retained contrast within the left renal collecting system without definite hydronephrosis. Adenopathy of the upper abdomen noted in addition to epicardial lymph nodes measuring up to 1.7 x 0.8 cm. Soft tissues are unremarkable with mild bilateral gynecomastia. No suspicious bony lesions identified. IMPRESSION: 1. Innumerable perilymphatic distribution of pulmonary nodules throughout all lobes of the lungs bilaterally are noted within an upper and mid lung zone predominant distribution with confluent nodules forming multifocal areas of consolidation. These findings in addition to enlarged subpectoral, axillary, mediastinal and hilar adenopathy is suspicious for sarcoidosis. Additional differential considerations would include but are not limited to lymphangitic carcinomatosis from unknown primary neoplasm or lymphocytic interstitial pneumonia among other etiologies. 2. Heterogeneous appearance of the liver and spleen correlates with innumerable hypoattenuating lesions seen on CT abdomen and pelvis of same day. Assessment: pt is a 32 year old male who was admitted to hospital for right groin pain for 6-7 years, IMP: lymphadenopathy I recommend to do right groin lymph node biopsy tomorrow, D ?w benefits, risks and alternatives of the surgery, the risks- infection, bleeding, pt understood, he agrees with the plan, I answered all questions, NPO after MN,
[2017-07-07 14:52] VITALS: BP 114/76; PULSE 76; TEMP 36.7; O2SAT 98
[2017-07-07] MEDS: NICOTINE 21 MG/24 HR TDSY TD SCH (16:11)
--- NOTE | 2017-07-07 16:48 | Progress Note ---
Internal Med Progress Note Date of Service: Jul 07, 2017. Provider Documentation: SUBJECTIVE: Very anxious, wants to be discharged home as soon as possible Cough has improved No fevers or chills Ongoing pain and discomfort at right inguinal area OBJECTIVE: Vital Signs-as noted below Exam: General-a very thin cachectic appearing young male Eyes-sclera nonicteric, PERRLA/EOMI ENT-moist oral mucosa Neck- no JVD noted, lymphadenopathy on the posterior cervical chain Lungs-no wheezes or rales, normal ultrasound Heart-regular S1-S2 Abdomen-soft nontender Extremities-palpable multiple lymphadenopathy noted on the right inguinal region , positive tenderness / no overlying skin erythema or increased warmth or skin change Neuro-no focal neurological deficit, awake and alert oriented 3 Lab data as noted below. ASSESSMENT & PLAN: 1.Generalized lymphadenopathy: -Presented with months of weakness fatigue night sweats -Painful right groin lymphadenopathy -CT of abdomen chest findings as above - will need lymph node biopsy to confirm diagnosis of sarcoidosis versus lymphoma versus infectious process -General surgery consulted Appreciate input Schedule for right inguinal region excision biopsy tomorrow N.p.o. past midnight Pulmonology consulted for mediastinal lymphadenopathy - patient may need bronchoscopy evaluation with biopsy as well - Peripheral smear: Shows mild neutropenia, normal lymphocytes, red cells -No atypical lymphocytes, red cells noted 2.Hyponatremia: -Corrected with IV fluids Possible secondary to dehydration Patient is encouraged to increase p.o. intake 3. Nonproductive cough. CT chest shows possible bronchitis with tree-in-bud appearance Report of ongoing fever chills/cough -Possible viral bronchitis -We will DC Rocephin -Continue Zithromax for 5 days 4. Tobacco abuse disorder -Smoking cessation counseling provided Ordered nicotine patch- CODE STATUS: Full code DVT PROPHYLAXIS Refused Subcu Lovenox Orders for SCDs and teds Ambulate DISPOSITION Expect to be discharged home when medically stable will need outpatient follow-up with hematology oncology vs rheumatology- depending on the pathology of the lymph node -Need to establish care with a family physician for continued medical care Vital Signs: Date Time Temp Pulse Resp B/P (MAP) Pulse Ox O2 Delivery O2 Flow Rate FiO2 07/07/17 15:23 Room Air 07/07/17 14:52 36.7 76 18 114/76 (89) 98 Room Air 07/07/17 08:17 97 Room Air 3/9/18 07:52 36.4 72 18 105/69 (81) 97 Room Air 07/07/17 00:00 Room Air 07/06/17 23:55 36.7 67 18 111/72 (85) 96 Room Air 07/06/17 19:02 37.0 70 18 107/72 (84) 96 Room Air 07/06/17 18:57 37.0 70 18 107/72 96 Room Air Lab Results: Results Past 24 Hours Test 07/07/17 05:20 Range/Units White Blood Count 3.52 4.8-10.8 K/uL Red Blood Count 4.89 4.7-6.1 M/uL Hemoglobin 14.7 14.0-18.0 g/dL Hematocrit 42.9 42-52 % Mean Corpuscular Volume 87.7 80-100 fL Mean Corpuscular Hemoglobin 30.1 25-34 pg Mean Corpuscular Hemoglobin Concent 34.3 32-36 g/dl RDW Standard Deviation 42.1 36.4-46.3 fL RDW Coefficient of Variation 13.1 11.5-14.5 % Platelet Count 198 130-400 K/uL Mean Platelet Volume 8.7 7.4-10.4 fL Peripheral Blood Smear Path Consult Sodium Level 136 136-145 mmol/L Potassium Level 4.6 3.5-5.1 mmol/L Chloride Level 104 98-107 mmol/L Carbon Dioxide Level 31 21-32 mmol/L Anion Gap 2.0 3-11 mmol/L Blood Urea Nitrogen 15 7-18 mg/dl Creatinine 1.07 0.60-1.40 mg/dl Est Creatinine Clear Calc Drug Dose 89.2 ml/min Estimated GFR () 107.4 Estimated GFR (Non- 92.7 BUN/Creatinine Ratio 14.0 10-20 Random Glucose 79 70-99 mg/dl Uric Acid 4.5 2.6-7.2 mg/dl Calcium Level 8.3 8.5-10.1 mg/dl Total Bilirubin 0.4 0.2-1 mg/dl Direct Bilirubin < 0.1 0-0.2 mg/dl Aspartate Amino Transf (AST/SGOT) 42 15-37 U/L Alanine Aminotransferase (ALT/SGPT) 41 12-78 U/L Alkaline Phosphatase 306 45-117 U/L Lactate Dehydrogenase 243 87-241 U/L Total Protein 8.0 6.4-8.2 gm/dl Albumin 3.1 3.4-5.0 gm/dl Globulin 4.9 2.5-4.0 gm/dl Albumin/Globulin Ratio 0.6 0.9-2 Hepatitis B Surface Antigen NEG NEG Hepatitis C Antibody NEG NEG Microbiology Results 07/06/17 Gram Stain - Final, Resulted 07/06/17 Sputum Culture - Preliminary, Resulted MODERATE NORMAL MOO Present, Final ...
--- NOTE | 2017-07-07 19:24 | Pulmonary Consultation ---
History General Date of Service: Jul 07, 2017. Chief Complaint: Multiple pulmonary nodules as well as bulky lymphadenopathy Stated Complaint: Lymphadenopathy HPI The patient is a 32 year old male who presents to [facility] with complaints of Lymphadenopathy. The patient's primary care provider is No Doctor, Assigned. Patient seen and examined at bedside with Dr. Pederson. Patient states that he has painful lymph nodes in the right groin. He has no SOB and has not been out of bed to comment on SHARMA. He is a smoker and currently is chewing tobacco. He reportedly has a history of incarceration and is currently on airbourne precautions until Tb is ruled out. He has no chest pain or tightness. He has no hemoptysis. He has no significant cough or sputum production. He does report b type symptoms including night sweats for the past several weeks. He currently denies fever or chills but is diaphoretic. He denies LE edema or calf pain. No history of thromboembolic disease. Review of Systems A total of 12 systems was reviewed and is negative other than as listed above in the HPI All Other Symptoms All Other Systems: Reviewed and Negative Past Medical History Past Medical History: Medical Problems: Lymphadenopathy Tobacco abuse Chronic ibuprofen use daily Past Surgical History: no surgical history Family History No history of lung cancer. Grandmother of COPD complications Social History Hx Tobacco Use In Past Year?: Yes Smoking Status: Current Every Day Smoker (one pack/day) Marital status: Immunizations History of Influenza Vaccine: Unknown History of Tetanus Vaccine?: Unknown History of Pneumococcal: Unknown History of Hepatitis B Vaccine: Unknown Other Immunizations?: Unknown History of MDRO History of MDRO: No Allergies Coded Allergies: Mushroom (Unverified Allergy, Severe, THROAT SWELLING, 09/23/15) Tramadol (Unverified Allergy, Severe, SEVERE VOMITING, 09/23/15) Current Medications Reported Home Medications Medications Dose Route/Sig Max Daily Dose Days Date Category Advil (Ibuprofen) 200 Mg Tab 200 Mg PO 07/06/17 Reported Physical Physical Exam Vital Signs: Date Time Temp Pulse Resp B/P (MAP) Pulse Ox O2 Delivery O2 Flow Rate FiO2 07/07/17 15:23 Room Air 07/07/17 14:52 36.7 76 18 114/76 (89) 98 Room Air 07/07/17 08:17 97 Room Air 07/07/17 07:52 36.4 72 18 105/69 (81) 97 Room Air 07/07/17 00:00 Room Air 07/06/17 23:55 36.7 67 18 111/72 (85) 96 Room Air Weight in Kilograms: 62.5 GENERAL : No acute distress EYES: No icterus, gaze conjugate NOSE: No evidence of epistaxis MOUTH: No lesions or candidiasis NECK: Supple LUNGS: CTA B/L, no wheezes, rales or rhonchi HEART: Regular, rate controlled ABDOMEN: Soft, NT, ND, BS Present EXTREMITIES: No LE edema, pedal pulses intact NEURO: A&OX3 Diagnostics Labs Results Past 24 Hours Test 07/07/17 05:20 Range/Units White Blood Count 3.52 4.8-10.8 K/uL Red Blood Count 4.89 4.7-6.1 M/uL Hemoglobin 14.7 14.0-18.0 g/dL Hematocrit 42.9 42-52 % Mean Corpuscular Volume 87.7 80-100 fL Mean Corpuscular Hemoglobin 30.1 25-34 pg Mean Corpuscular Hemoglobin Concent 34.3 32-36 g/dl RDW Standard Deviation 42.1 36.4-46.3 fL RDW Coefficient of Variation 13.1 11.5-14.5 % Platelet Count 198 130-400 K/uL Mean Platelet Volume 8.7 7.4-10.4 fL Peripheral Blood Smear Path Consult Sodium Level 136 136-145 mmol/L Potassium Level 4.6 3.5-5.1 mmol/L Chloride Level 104 98-107 mmol/L Carbon Dioxide Level 31 21-32 mmol/L Anion Gap 2.0 3-11 mmol/L Blood Urea Nitrogen 15 7-18 mg/dl Creatinine 1.07 0.60-1.40 mg/dl Est Creatinine Clear Calc Drug Dose 89.2 ml/min Estimated GFR () 107.4 Estimated GFR (Non- 92.7 BUN/Creatinine Ratio 14.0 10-20 Random Glucose 79 70-99 mg/dl Uric Acid 4.5 2.6-7.2 mg/dl Calcium Level 8.3 8.5-10.1 mg/dl Total Bilirubin 0.4 0.2-1 mg/dl Direct Bilirubin < 0.1 0-0.2 mg/dl Aspartate Amino Transf (AST/SGOT) 42 15-37 U/L Alanine Aminotransferase (ALT/SGPT) 41 12-78 U/L Alkaline Phosphatase 306 45-117 U/L Lactate Dehydrogenase 243 87-241 U/L Total Protein 8.0 6.4-8.2 gm/dl Albumin 3.1 3.4-5.0 gm/dl Globulin 4.9 2.5-4.0 gm/dl Albumin/Globulin Ratio 0.6 0.9-2 Hepatitis B Surface Antigen NEG NEG Hepatitis C Antibody NEG NEG Microbiology Results 07/06/17 Gram Stain - Final, Resulted 07/06/17 Sputum Culture - Preliminary, Resulted MODERATE NORMAL MOO Present, Final ... Diagnostic Radiology (CHEST) THORAX WITHOUT CT DOSE: 266.32 mGy.cm CLINICAL HISTORY: 32 years-old Male with GOT IV CONTRAST FOR CT ABDOMEN/PELVIS . Follow-up study in a patient with lymphadenopathy and night sweats TECHNIQUE: Multiaxial CT images of the chest were performed without contrast. A dose lowering technique was utilized adhering to the principles of ALARA. COMPARISON: CT abdomen and pelvis, chest radiographs and testicular ultrasound of same day FINDINGS: Thyroid is homogeneous. Multiple enlarged bilateral subpectoral, axillary, mediastinal and hilar adenopathy. For example, conglomerate right hilar adenopathy measures up to 3.6 x 2.2 cm on image 149 series 4. Enlarged right paratracheal lymph nodes measure up to 2.0 x 1.4 cm on image 81 of series 4. Enlarged prevascular and AP window lymph nodes are present Prominent subpleural lymph nodes of the level the medial right lung base are also noted measuring up to 5 mm in short axis. Heart is normal in size without pericardial effusion. Thoracic aorta appears normal in course and caliber. The unopacified pulmonary chill tree is unremarkable. There is no pleural effusion or pneumothorax. There are innumerable lymphatic distribution of pulmonary nodules throughout the all lobes within the bilaterally which are seen layering along the fissures and bronchovascular bundles. Many of these nodules conglomerate to make small consolidative type opacities, measuring up to 1.3 x 0.9 cm within the right lower lobe, image 243 series 4. There is somewhat of an upper lung zone predominant distribution of these nodules. No cavitary lung lesions are identified. The central airways appear patent. Diffusely heterogeneous appearance of the liver and spleen correlates with the previously described innumerable low attenuating lesions seen on comparison CT abdomen and pelvis of same day. There is retained contrast within the left renal collecting system without definite hydronephrosis. Adenopathy of the upper abdomen noted in addition to epicardial lymph nodes measuring up to 1.7 x 0.8 cm. Soft tissues are unremarkable with mild bilateral gynecomastia. No suspicious bony lesions identified. IMPRESSION: 1. Innumerable perilymphatic distribution of pulmonary nodules throughout all lobes of the lungs bilaterally are noted within an upper and mid lung zone predominant distribution with confluent nodules forming multifocal areas of consolidation. These findings in addition to enlarged subpectoral, axillary, mediastinal and hilar adenopathy is suspicious for sarcoidosis. Additional differential considerations would include but are not limited to lymphangitic carcinomatosis from unknown primary neoplasm or lymphocytic interstitial pneumonia among other etiologies. 2. Heterogeneous appearance of the liver and spleen correlates with innumerable hypoattenuating lesions seen on CT abdomen and pelvis of same day. Electronically signed by: Vlad Valdez M.D. 07/06/2017 5:51 PM Impression Assessment and Plan Multiple pulmonary nodules * Lung nodules identified in all lobes of both lungs. * Differentials include malignancy versus sarcoidosis * Bulky lymphadenopathy in the mediastinum, axillary and hilar areas also present * Currently scheduled for Andreia with navigational bronchoscopy for Monday at noon time in the operating room * N.p.o. after midnight on Monday into Monday morning * Hold all anticoagulation after 1600 on Monday * Currently no hypoxia, hemoptysis * Continue azithromycin empirically Chronic NSAID use * Patient reports heavy ibuprofen use daily * Would hold all NSAIDs * Treat pain with low doses of morphine sulfate Tobacco abuse * Patient continues to be an everyday smoker * Patient also uses smokeless tobacco * Discussed need for complete abstinence of tobacco products DVT prophylaxis * Chemical prophylaxis held for lymph node biopsy by surgery tomorrow * TEDs/SCDs * Ambulate as tolerated Thank you for including us in the care of this patient. We will follow along with you. Please refer to Dr. Pederson's addendum for further recommendations Attending Physician Supervision Note: I was present with Lam mullen PA-C during the history and exam. I discussed the case with him and agree with the findings and plan as documented in the note. Any exceptions or clarifications are listed here: Patient with mediastinal and hilar lymphadenopathy, lung nodules, axillary and inguinal lymphadenopathy. Differential diagnosis include inflammatory diseases such as sarcoidosis, malignancies or infectious pathologies Plan for inguinal lymph node biopsy. If not diagnostic, will proceed with bronchoscopy/EBUS Continue empiric Abx. In isolation to rule out TB. Not producing sputum though. Will rule it out bronchoscopically eventually if still needed. Check Quantiferon Gold test Documented By: Jaylan Pederson MD
[2017-07-07] MEDS: MoRPHine SULFATE 2 MG/ML CARP IV PRN (20:16)
--- NOTE | 2017-07-07 23:26 | Medical Consult ---
Consultation Date of Consultation: Jul 07, 2017. Attending Physician: Ashtyn Pedroza M.D. Reason for Consultation: lymphadenopathy History of Present Illness 32 year old male who is admitted with right groin pain and fevers night sweats. Patient states that symptoms have been occuring for several months. He states that he has felt tender lymph nodes and pain in the right inguinal region for several months but recently noticed more adenopathy in that area. He denies weight loss or appetite changes He states that he has night sweats. He has discomfort on the firht abdomen sometimes but main pain is in the right groin Family History grandmother had lung cancer - was a smoker uncle had prostate cancer Social History Smoking Status: Current Every Day Smoker (one pack/day) Smokeless Tobacco Use: No Alcohol Use: occasionally Drug Use: none Allergies Coded Allergies: Mushroom (Unverified Allergy, Severe, THROAT SWELLING, 09/23/15) Tramadol (Unverified Allergy, Severe, SEVERE VOMITING, 09/23/15) Current Inpatient Medications Current Inpatient Medications Medications (Trade) Dose Ordered Sig/Xuan Route Start Time Stop Time Status Last Admin Dose Admin Ioversol (Optiray 320) 111 ml UD PRN IV 07/06/17 13:30 07/10/17 13:29 Acetaminophen (Tylenol Tab) 650 mg Q4H PRN PO 07/06/17 16:45 08/05/17 16:44 07/07/17 16:15 650 MG Al Hydrox/Mg Hydrox/Simethicone (Maalox Max Susp) 15 ml Q4H PRN PO 07/06/17 16:45 08/05/17 16:44 Magnesium Hydroxide (Milk Of Magnesia Susp) 30 ml Q6H PRN PO 07/06/17 16:45 08/05/17 16:44 Polyethylene (Miralax Powder Packet) 17 gm DAILY PRN PO 07/06/17 16:45 08/05/17 16:44 Zolpidem Tartrate (Ambien Tab) 5 mg HSZ PRN PO 07/06/17 16:45 08/05/17 16:44 Ondansetron HCl (Zofran Inj) 4 mg Q6H PRN IV 07/06/17 16:45 08/05/17 16:44 Azithromycin (Zithromax Tab) 500 mg QAM PO 07/06/17 20:00 07/13/17 19:59 07/07/17 07:59 500 MG Prednisone (PredniSONE TAB) 40 mg DAILY PO 07/07/17 08:00 08/06/17 07:59 07/07/17 07:59 40 MG Nicotine (Nicoderm Cq 21MG Patch) 1 patch QAM TD 07/07/17 14:00 08/06/17 13:59 Miscellaneous (Remove Nicoderm Patch) 1 ea HS N/A 07/07/17 21:00 08/06/17 20:59 Morphine Sulfate (MoRPHine SULFATE INJ) 1 mg Q4 PRN IV 07/07/17 18:15 07/21/17 18:14 07/07/17 20:16 1 MG Review of Systems Constitutional: + fever, + chills, + sweats, + weight loss, + fatigue (mild), No weakness Eyes: No worsening of vision, No diplopia ENT: No unusual epistaxis, No nasal symptoms, No sore throat Respiratory: No cough, No sputum, No wheezing, No shortness of breath, No dyspnea on exertion, No dyspnea at rest Cardiovascular: No chest pain, No edema Abdomen: No pain, No nausea, No vomiting, No diarrhea, No constipation Genitourinary - Male: No hematuria, No dysuria, No urinary frequency Endocrine: + fatigue Integumentary: No rash, No itch Physical Exam Date Time Temp Pulse Resp B/P (MAP) Pulse Ox O2 Delivery O2 Flow Rate FiO2 07/07/17 19:00 Room Air 07/07/17 15:23 Room Air 07/07/17 14:52 36.7 76 18 114/76 (89) 98 Room Air 07/07/17 08:17 97 Room Air 07/07/17 07:52 36.4 72 18 105/69 (81) 97 Room Air 07/07/17 00:00 Room Air 07/06/17 23:55 36.7 67 18 111/72 (85) 96 Room Air General Appearance: no apparent distress, + thin Head: normocephalic, atraumatic Eyes: sclerae normal ENT: pharynx normal Neck: supple, + adenopathy present, + pertinent finding (+right supraclavicualar lymph node) Respiratory/Chest: chest non-tender, lungs clear, normal breath sounds, no respiratory distress, no accessory muscle use Cardiovascular: regular rate, rhythm, no edema Abdomen/GI: normal bowel sounds, non tender, soft, no organomegaly Back: no CVA tenderness Extremities/Musculoskelatal: no calf tenderness, no pedal edema, non-tender Neurologic/Psych: alert, oriented x 3 Skin: warm/dry Lymphatic: + cervical node abnormality, + inguinal node abnormality Laboratory Results Last 24 Hours Test 07/07/17 05:20 White Blood Count 3.52 K/uL Red Blood Count 4.89 M/uL Hemoglobin 14.7 g/dL Hematocrit 42.9 % Mean Corpuscular Volume 87.7 fL Mean Corpuscular Hemoglobin 30.1 pg Mean Corpuscular Hemoglobin Concent 34.3 g/dl RDW Standard Deviation 42.1 fL RDW Coefficient of Variation 13.1 % Platelet Count 198 K/uL Mean Platelet Volume 8.7 fL Peripheral Blood Smear Path Consult Sodium Level 136 mmol/L Potassium Level 4.6 mmol/L Chloride Level 104 mmol/L Carbon Dioxide Level 31 mmol/L Anion Gap 2.0 mmol/L Blood Urea Nitrogen 15 mg/dl Creatinine 1.07 mg/dl Est Creatinine Clear Calc Drug Dose 89.2 ml/min Estimated GFR () 107.4 Estimated GFR (Non- 92.7 BUN/Creatinine Ratio 14.0 Random Glucose 79 mg/dl Uric Acid 4.5 mg/dl Calcium Level 8.3 mg/dl Total Bilirubin 0.4 mg/dl Direct Bilirubin < 0.1 mg/dl Aspartate Amino Transf (AST/SGOT) 42 U/L Alanine Aminotransferase (ALT/SGPT) 41 U/L Alkaline Phosphatase 306 U/L Lactate Dehydrogenase 243 U/L Total Protein 8.0 gm/dl Albumin 3.1 gm/dl Globulin 4.9 gm/dl Albumin/Globulin Ratio 0.6 Hepatitis B Surface Antigen NEG Hepatitis C Antibody NEG CT scan abdomen Innumerable subcentimeter hepatic and splenic hypodense lesions with mild lymphadenopathy within the chest, abdomen, and pelvis and multiple nodular airspace opacities within the lung bases as described above. These findings suggest an atypical systemic infectious process including fungal or a bacterial process including tuberculosis. A lymphoma, metastatic disease, or possibly sarcoidosis could also have a similar appearance. CT chest 1. Innumerable perilymphatic distribution of pulmonary nodules throughout all lobes of the lungs bilaterally are noted within an upper and mid lung zone predominant distribution with confluent nodules forming multifocal areas of consolidation. These findings in addition to enlarged subpectoral, axillary, mediastinal and hilar adenopathy is suspicious for sarcoidosis. Additional differential considerations would include but are not limited to lymphangitic carcinomatosis from unknown primary neoplasm or lymphocytic interstitial pneumonia among other etiologies. 2. Heterogeneous appearance of the liver and spleen correlates with innumerable hypoattenuating lesions seen on CT abdomen and pelvis of same day. Assessment & Plan 32 year old male admitted with fever night sweats and abnormal CT scan of chest abdomen and pelvis with extensive adenopathy on CT scan. I discussed case with Dr Pedroza and had recommended to rule out infection, check LDH, BRAYAN level, Hepatitis screen, HIV screen if patient agrees and flow cytometry and surgery consult to evaluate for biopsy to obtain a tissue diagnosis. Differential include , lymphoproliferative disorder or malignancy, sarcoidosis, reactive causes, infection or inflammatory processes, and no tissue diagnosis is available at this time follow up upon discharge when biopsy results available. PET-CT scan can be obtained outpatient smoking cessation is advised please call if questions
[2017-07-08 00:01] VITALS: BP 127/78; PULSE 77; TEMP 36.7; O2SAT 98
[2017-07-08] MEDS: MoRPHine SULFATE 2 MG/ML CARP IV PRN ×3 (00:01→16:26)
[2017-07-08 06:48] VITALS: BP 110/74; PULSE 99; TEMP 36.5; O2SAT 98
[2017-07-08 08:30] VITALS: O2SAT 98
--- NOTE | 2017-07-08 12:29 | Surgery Progress Note ---
Surgery Progress Note Date of Service Jul 08, 2017. Subjective Post OP Day: HD # 2 + feeling well, + ambulating, + diet, No complaints, No chest pain, No SOB, No nausea, No vomiting Objective Vital Signs: Date Time Temp Pulse Resp B/P (MAP) Pulse Ox O2 Delivery O2 Flow Rate FiO2 07/08/17 08:30 98 Room Air 07/08/17 06:48 36.5 99 19 110/74 (86) 98 Room Air 07/08/17 00:01 36.7 77 18 127/78 (94) 98 Room Air 07/08/17 00:00 Room Air 07/07/17 19:00 Room Air 07/07/17 15:23 Room Air 07/07/17 14:52 36.7 76 18 114/76 (89) 98 Room Air General Appearance: WD/WN, no apparent distress Head: normocephalic, atraumatic Neck: trachea midline Respiratory/Chest: no respiratory distress, no accessory muscle use Assessment & Plan 32 year old male admitted with fever, night sweats, and abnormal CT scan of chest abdomen and pelvis with extensive adenopathy on CT scan. 6-7 year history of enlarged, painful right groin lymphadenopathy. Plan: Plan for bronchoscopy and right lymph node excisional biopsy on Monday. Continue current medical management May have regular diet NPO after midnight Monday. Dr. Jones has seen patient, agrees with above.
[2017-07-08] MEDS: NICOTINE 21 MG/24 HR TDSY TD SCH (12:41)
[2017-07-08] MEDS: AZITHROMYCIN 250 MG TAB PO SCH (12:41)
[2017-07-08 15:29] VITALS: BP 134/68; PULSE 88; TEMP 37.2; O2SAT 98
--- NOTE | 2017-07-08 16:24 | Pulmonology Progress Note ---
Pulmonary Progress Note Date of Service Jul 08, 2017. Attending Dr. Pederson Subjective No changes. No shortness of breath. Minimal cough. No hemoptysis. No fever. Continues with sweats and B type symptoms. Objective Vital Signs - as noted below Laboratory Data - as noted below Physical Exam: General - NAD Eyes - No icterus, gaze conjugate ENT - Mucosa moist, no lesions or candidiasis Neck - Supple, No JVD Lungs - No bronchospasm, rales, or rhonchi. Heart - Regular, rate controlled Abdomen - Soft, NT, ND, BS present Extremities - No edema, pedal pulses intact Neuro - A&OX3 Assessment & Plan Multiple pulmonary nodules * Lung nodules identified in all lobes of both lungs. * Differentials include malignancy versus sarcoidosis * Bulky lymphadenopathy in the mediastinum, axillary and hilar areas also present * Currently scheduled for EBUS with navigational bronchoscopy for Monday at noon time in the operating room -will defer to Dr. Ortiz on Monday * N.p.o. after midnight on Monday into Monday * Hold all anticoagulation after 1600 on Monday * Currently no hypoxia, hemoptysis * Continue azithromycin empirically Isolation to rule out TB * Check QuantiFERON gold * Bronchoalveolar lavage with bronchoscopy on Monday * Continue isolation as per protocol although doubt TB Chronic NSAID use * Patient reports heavy ibuprofen use daily * Would hold all NSAIDs * Treat pain with low doses of morphine sulfate Tobacco abuse * Patient continues to be an everyday smoker * Patient also uses smokeless tobacco * Discussed need for complete abstinence of tobacco products DVT prophylaxis * Chemical prophylaxis held for lymph node biopsy by surgery tomorrow * TEDs/SCDs * Ambulate as tolerated Thank you for including us in the care of this patient. We will follow along with you. Please refer to Dr. Pederson's addendum for further recommendations Data Medications: Current Inpatient Medications Medications (Trade) Dose Ordered Sig/Xuan Route Start Time Stop Time Status Last Admin Dose Admin Ioversol (Optiray 320) 111 ml UD PRN IV 07/06/17 13:30 07/10/17 13:29 Acetaminophen (Tylenol Tab) 650 mg Q4H PRN PO 07/06/17 16:45 08/05/17 16:44 07/07/17 16:15 650 MG Al Hydrox/Mg Hydrox/Simethicone (Maalox Max Susp) 15 ml Q4H PRN PO 07/06/17 16:45 08/05/17 16:44 Magnesium Hydroxide (Milk Of Magnesia Susp) 30 ml Q6H PRN PO 07/06/17 16:45 08/05/17 16:44 Polyethylene (Miralax Powder Packet) 17 gm DAILY PRN PO 07/06/17 16:45 08/05/17 16:44 Zolpidem Tartrate (Ambien Tab) 5 mg HSZ PRN PO 07/06/17 16:45 08/05/17 16:44 Ondansetron HCl (Zofran Inj) 4 mg Q6H PRN IV 07/06/17 16:45 08/05/17 16:44 Azithromycin (Zithromax Tab) 500 mg QAM PO 07/06/17 20:00 07/13/17 19:59 07/07/17 07:59 500 MG Prednisone (PredniSONE TAB) 40 mg DAILY PO 07/07/17 08:00 08/06/17 07:59 07/08/17 12:41 40 MG Nicotine (Nicoderm Cq 21MG Patch) 1 patch QAM TD 07/07/17 14:00 08/06/17 13:59 Miscellaneous (Remove Nicoderm Patch) 1 ea HS N/A 07/07/17 21:00 08/06/17 20:59 Morphine Sulfate (MoRPHine SULFATE INJ) 1 mg Q4 PRN IV 07/07/17 18:15 07/21/17 18:14 07/08/17 11:17 1 MG Vital Signs: Date Time Temp Pulse Resp B/P (MAP) Pulse Ox O2 Delivery O2 Flow Rate FiO2 07/08/17 15:29 37.2 88 16 134/68 (90) 98 07/08/17 08:30 98 Room Air 07/08/17 06:48 36.5 99 19 110/74 (86) 98 Room Air 07/08/17 00:01 36.7 77 18 127/78 (94) 98 Room Air 07/08/17 00:00 Room Air 07/07/17 19:00 Room Air
--- NOTE | 2017-07-08 18:18 | Progress Note ---
Internal Med Progress Note Date of Service: Jul 08, 2017. Provider Documentation: SUBJECTIVE: Patient reports feeling of hot flash followed by drenching sweats Similar symptom has been ongoing for the past few weeks Afebrile Poor appetite No complaint of cough, shortness of breath or chest discomfort OBJECTIVE: Vital Signs-as noted below Exam: General-a very thin cachectic appearing young male Eyes-sclera nonicteric, PERRLA/EOMI ENT-moist oral mucosa Neck- no JVD noted, lymphadenopathy on the posterior cervical chain Lungs-no wheezes or rales, normal ultrasound Heart-regular S1-S2 Abdomen-soft nontender Extremities-palpable multiple lymphadenopathy noted on the right inguinal region , positive tenderness / no overlying skin erythema or increased warmth or skin change Neuro-no focal neurological deficit, awake and alert oriented 3 Lab data as noted below. ASSESSMENT & PLAN: 1.Generalized lymphadenopathy: -Presented with months of weakness fatigue night sweats -Painful right groin lymphadenopathy -CT of abdomen chest findings as above - Appreciate input from hematology oncology LDH level elevated Hepatitis screen negative Level ordered for sarcoidosis Surgical consult for lymph node biopsy Patient will need to follow-up with hematology oncology in office after biopsy report available Patient will be scheduled for outpatient PETCT scan Pulmonology consulted for mediastinal lymphadenopathy -Possible bronchoscopic biopsy/endoscopic ultrasound biopsy on 07/10/2017 General surgery consulted patient will have right inguinal lymph node excision biopsy - Peripheral smear: Shows mild neutropenia, normal lymphocytes, red cells -No atypical lymphocytes, red cells noted 2.Hyponatremia: -Corrected with IV fluids Possible secondary to dehydration IV fluids DC'd Patient is encouraged to increase p.o. intake 3. Nonproductive cough. Symptom improved CT chest shows possible bronchitis with tree-in-bud appearance Report of ongoing fever chills/cough -Possible viral bronchitis -Continue Zithromax for 5 days 4. Tobacco abuse disorder -Smoking cessation counseling provided Ordered nicotine patch CODE STATUS: Full code DVT PROPHYLAXIS Refused Subcu Lovenox Orders for SCDs and teds Ambulate DISPOSITION Expect to be discharged home when medically stable will need outpatient follow-up with hematology oncology vs rheumatology- depending on the pathology of the lymph node -Need to establish care with a family physician for continued medical care Vital Signs: Date Time Temp Pulse Resp B/P (MAP) Pulse Ox O2 Delivery O2 Flow Rate FiO2 07/08/17 23:13 36.8 71 20 128/75 (92) 94 Room Air 07/08/17 16:15 Room Air 07/08/17 15:29 37.2 88 16 134/68 (90) 98 07/08/17 08:30 98 Room Air 07/08/17 06:48 36.5 99 19 110/74 (86) 98 Room Air 07/08/17 00:01 36.7 77 18 127/78 (94) 98 Room Air 07/08/17 00:00 Room Air
[2017-07-08] MEDS ORDERED: MoRPHine SULFATE 2 MG/ML CARP IV PRN (18:30)
[2017-07-08] MEDS ORDERED: OXYCODONE/ACETAMINOPHEN 5-325 TAB PO PRN (18:30)
[2017-07-08] MEDS: OXYCODONE/ACETAMINOPHEN 5-325 TAB PO PRN (22:05)
[2017-07-08 23:13] VITALS: BP 128/75; PULSE 71; TEMP 36.8; O2SAT 94
[2017-07-09 08:00] VITALS: BP 109/74; PULSE 80; TEMP 36.7; O2SAT 95
[2017-07-09] MEDS: NICOTINE 21 MG/24 HR TDSY TD SCH (08:39)
[2017-07-09] MEDS: AZITHROMYCIN 250 MG TAB PO SCH (08:40)
[2017-07-09] MEDS: OXYCODONE/ACETAMINOPHEN 5-325 TAB PO PRN ×3 (08:41→18:33)
--- NOTE | 2017-07-09 11:50 | Surgery Progress Note ---
Surgery Progress Note Date of Service Jul 09, 2017. Subjective + feeling well pt is stable, no C/O, Objective Vital Signs: Date Time Temp Pulse Resp B/P (MAP) Pulse Ox O2 Delivery O2 Flow Rate FiO2 07/09/17 08:30 Room Air 07/09/17 08:00 36.7 80 16 109/74 (86) 95 Room Air 07/09/17 00:00 Room Air 07/08/17 23:13 36.8 71 20 128/75 (92) 94 Room Air 07/08/17 16:15 Room Air 07/08/17 15:29 37.2 88 16 134/68 (90) 98 General Appearance: WD/WN, no apparent distress Head: normocephalic Neck: supple, no JVD Respiratory/Chest: chest non-tender, lungs clear Cardiovascular: regular rate, rhythm, no edema, no JVD Abdomen: normal bowel sounds, non tender, non distended, soft Extremities: normal range of motion, non-tender, normal inspection Assessment & Plan pt will have right groin lymph node biopsy tomorrow, will F/U
[2017-07-09 14:17] VITALS: BP 110/74; PULSE 80; TEMP 36.7; O2SAT 95
--- NOTE | 2017-07-09 14:30 | Pulmonology Progress Note ---
Pulmonary Progress Note Date of Service Jul 09, 2017. Attending Dr. Pederson Subjective No changes from yesterday. Oxygenating well on room air. Awaiting biopsies. No acute complaints. Objective Vital Signs - as noted below Laboratory Data - as noted below Physical Exam: General - NAD Eyes - No icterus, gaze conjugate ENT - Mucosa moist, no lesions or candidiasis Neck - Supple, No JVD Lungs - No bronchospasm, rales, or rhonchi. Heart - Regular, rate controlled Abdomen - Soft, NT, ND, BS present Extremities - No edema, pedal pulses intact Neuro - A&OX3 Assessment & Plan Multiple pulmonary nodules * Lung nodules identified in all lobes of both lungs. * Differentials include malignancy versus sarcoidosis * Bulky lymphadenopathy in the mediastinum, axillary and hilar areas also present * Currently scheduled for EBUS with navigational bronchoscopy for Monday at noon time in the operating room -will defer to Dr. Ortiz on Monday morning * N.p.o. after midnight on Monday into Monday * Hold all anticoagulation after 1600 on Monday * Currently no hypoxia, hemoptysis * Continue azithromycin empirically * Dr. Jones to do lymph node biopsy while patient is in OR on Monday Isolation to rule out TB * QuantiFERON gold ordered and pending from reference lab * Bronchoalveolar lavage with bronchoscopy on Monday * Continue isolation as per protocol although doubt TB Chronic NSAID use * Patient reports heavy ibuprofen use daily * Would hold all NSAIDs * Treat pain with low doses of morphine sulfate * Patient reports the pain is generally controlled Tobacco abuse * Patient continues to be an everyday smoker * Patient also uses smokeless tobacco * Discussed need for complete abstinence of tobacco products DVT prophylaxis * Chemical prophylaxis held for lymph node biopsy and invasive bronchoscopy on Monday * TEDs/SCDs * Ambulate as tolerated Thank you for including us in the care of this patient. We will follow along with you. Please refer to Dr. Pederson's addendum for further recommendations Data Medications: Current Inpatient Medications Medications (Trade) Dose Ordered Sig/Xuan Route Start Time Stop Time Status Last Admin Dose Admin Ioversol (Optiray 320) 111 ml UD PRN IV 07/06/17 13:30 07/10/17 13:29 Acetaminophen (Tylenol Tab) 650 mg Q4H PRN PO 07/06/17 16:45 08/05/17 16:44 07/07/17 16:15 650 MG Al Hydrox/Mg Hydrox/Simethicone (Maalox Max Susp) 15 ml Q4H PRN PO 07/06/17 16:45 08/05/17 16:44 Magnesium Hydroxide (Milk Of Magnesia Susp) 30 ml Q6H PRN PO 07/06/17 16:45 08/05/17 16:44 Polyethylene (Miralax Powder Packet) 17 gm DAILY PRN PO 07/06/17 16:45 08/05/17 16:44 Zolpidem Tartrate (Ambien Tab) 5 mg HSZ PRN PO 07/06/17 16:45 08/05/17 16:44 Ondansetron HCl (Zofran Inj) 4 mg Q6H PRN IV 07/06/17 16:45 08/05/17 16:44 Azithromycin (Zithromax Tab) 500 mg QAM PO 07/06/17 20:00 07/13/17 19:59 07/09/17 08:40 500 MG Prednisone (PredniSONE TAB) 40 mg DAILY PO 07/07/17 08:00 08/06/17 07:59 07/09/17 08:40 40 MG Nicotine (Nicoderm Cq 21MG Patch) 1 patch QAM TD 07/07/17 14:00 08/06/17 13:59 Miscellaneous (Remove Nicoderm Patch) 1 ea HS N/A 07/07/17 21:00 08/06/17 20:59 Morphine Sulfate (MoRPHine SULFATE INJ) 1 mg Q8 PRN IV 07/08/17 18:30 07/21/17 18:14 Oxycodone/ Acetaminophen (Percocet 5-325mg Tab) 1 tab Q4H PRN PO 07/08/17 18:30 07/22/17 18:29 Oxycodone/ Acetaminophen (Percocet 5-325mg Tab) 2 tab Q4H PRN PO 07/08/17 18:30 07/22/17 18:29 07/09/17 12:58 2 TAB I & O: 24-Hour Column 07/10/17 08:00 Intake Total 1300 ml Balance 1300 ml Vital Signs: Date Time Temp Pulse Resp B/P (MAP) Pulse Ox O2 Delivery O2 Flow Rate FiO2 07/09/17 14:17 36.7 80 16 110/74 (86) 95 Room Air 07/09/17 08:30 Room Air 07/09/17 08:00 36.7 80 16 109/74 (86) 95 Room Air 07/09/17 00:00 Room Air 07/08/17 23:13 36.8 71 20 128/75 (92) 94 Room Air 07/08/17 16:15 Room Air 07/08/17 15:29 37.2 88 16 134/68 (90) 98
--- NOTE | 2017-07-09 18:46 | Progress Note ---
Internal Med Progress Note Date of Service: Jul 09, 2017. Provider Documentation: SUBJECTIVE: Offers no new complaints No fever or chills No complaint of cough, no productive sputum, no hemoptysis Abdomen and back pain controlled with as needed Percocet Scheduled for bronchoscopy/mediastinal lymph node biopsy by pulmonology/right inguinal lymph node biopsy by surgery OBJECTIVE: Vital Signs-as noted below Exam: General-comfortable no sign of distress Eyes-sclera nonicteric, PERRLA/EOMI ENT-moist oral mucosa Neck- no JVD noted, lymphadenopathy on the posterior cervical chain Lungs-no wheezes or rales, normal ultrasound Heart-regular S1-S2 Abdomen-soft nontender Extremities-palpable multiple lymphadenopathy noted on the right inguinal region , positive tenderness / no overlying skin erythema or increased warmth or skin change Neuro-no focal neurological deficit, awake and alert oriented 3 Lab data as noted below. ASSESSMENT & PLAN: 1. Abdominal/pulmonary lymphadenopathy: -Presented with months of weakness fatigue night sweats -Painful right groin lymphadenopathy -CT of abdomen/ chest: Large number of hepatic and splenic hypodense lesions with mild lymphadenopathy within the chest abdomen and pelvis and multiple nodular airspace opacities within the lung bases LDH level elevated Hepatitis screen negative Angiotensin-converting enzyme level ordered for sarcoidosis-results pending Peripheral smear: Shows mild neutropenia, normal lymphocytes, red cells -No atypical lymphocytes, red cells noted Surgical consult for lymph node biopsy Appreciate input from hematology oncology Patient will need to follow-up with hematology oncology in office after biopsy report available will be scheduled for outpatient PET-CT scan Pulmonology consulted for mediastinal lymphadenopathy - bronchoscopic biopsy/endoscopic ultrasound biopsy /right inguinal lymph node excision biopsy by General surgery -on 07/10/2017 2.Hyponatremia: -Corrected with IV fluids Sodium level remained stable Possible secondary to dehydration IV fluids DC'd Patient is encouraged to increase p.o. intake 3. Nonproductive cough. Symptom improved CT chest shows possible bronchitis with tree-in-bud appearance Report of ongoing fever chills/cough -Possible viral bronchitis -Continue Zithromax for 5 days 4. Tobacco abuse disorder -Smoking cessation counseling provided Ordered nicotine patch CODE STATUS: Full code DVT PROPHYLAXIS Refused Subcu Lovenox Orders for SCDs and teds Ambulate DISPOSITION Expect to be discharged home when medically stable will need outpatient follow-up with hematology oncology vs rheumatology- depending on the pathology of the lymph node -Need to establish care with a family physician for continued medical care Vital Signs: Date Time Temp Pulse Resp B/P (MAP) Pulse Ox O2 Delivery O2 Flow Rate FiO2 07/09/17 23:30 36.9 58 18 111/72 (85) 98 Room Air 07/09/17 16:10 Room Air 07/09/17 14:17 36.7 80 16 110/74 (86) 95 Room Air 07/09/17 08:30 Room Air 07/09/17 08:00 36.7 80 16 109/74 (86) 95 Room Air 07/09/17 00:00 Room Air
[2017-07-09 21:54] LABS: HEPATITIS A IGM TC 51813E NON-REACTIVE (NON-REACTIVE); HEPATITIS B CORE IGM TC51854R NON-REACTIVE (NON-REACTIVE)
[2017-07-09 23:30] VITALS: BP 111/72; PULSE 58; TEMP 36.9; O2SAT 98
[2017-07-10 07:50] VITALS: BP 100/64; PULSE 70; TEMP 36.2; O2SAT 97
[2017-07-10] MEDS: NICOTINE 21 MG/24 HR TDSY TD SCH (08:00)
[2017-07-10] MEDS ORDERED: ATROPINE SULFATE 0.1 MG/ML 5ML SYR IV PRN (10:45)
[2017-07-10] MEDS ORDERED: LABETALOL HCL IV 5 MG/ML 20ML IV PRN (10:45)
[2017-07-10] MEDS ORDERED: MEPERIDINE HCL 25 MG/ML CARP IV PRN (10:45)
[2017-07-10] MEDS ORDERED: EpHEDrine SULFATE INJ 50 MG/ML AMP IV PRN (10:45)
[2017-07-10] MEDS ORDERED: HYDROmorphone INJ 1 MG/ML SYR IV PRN (10:45)
[2017-07-10] MEDS ORDERED: ONDANSETRON INJ 2 MG/ML 2 ML VIAL IV PRN (10:45)
[2017-07-10] MEDS ORDERED: LARYING-O-JET KIT (LTA) ONE (10:49)
[2017-07-10] MEDS ORDERED: MIDAZOLAM HCL 1 MG/ML 2ML VIAL ONE (10:49)
[2017-07-10] MEDS ORDERED: FENTANYL CITRATE INJ 50 MCG/1 ML 2 ML VIAL ONE (10:49)
[2017-07-10] MEDS ORDERED: LIDOCAINE HCL 2% 2 ML VIAL (20MG/ML) ONE (10:49)
[2017-07-10] MEDS ORDERED: ROCURONIUM BROMIDE 10 MG/ML 5 ML VIAL IV ONE (10:49)
[2017-07-10] MEDS ORDERED: PROPOFOL IV EMULSION 10 MG/ML 20 ML VIAL IV ONE (10:49)
[2017-07-10 10:50] LABS: QUANTIF MITOGEN-NIL 7.44 IU/ML; QUANTIFERON NEGATIVE (NEGATIVE); QUANTIFERON NIL 0.52 IU/ML
[2017-07-10] MEDS ORDERED: BUPIVACAINE 0.5 % 5 MG/1 ML MPF 30ML VIAL ONE (12:05)
--- NOTE | 2017-07-10 12:08 | History & Physical Bridge Note ---
H&P Re-Evaluation Bridge Note: I have examined the patient, reviewed the History & Physical and in the interval since the performance of the History & Physical I have noted the following changes of clinical significance: No changes noted
--- NOTE | 2017-07-10 13:15 | Bronchoscopy Procedure Note ---
Bronchoscopy Procedure Note Procedure: Flexible-Bronchoscopy, EBUS, FNA, BAL Consent: Obtained through the patient placed into the chart Pre-Procedural Dx: Mediastinal adenopathy Post-Procedural Dx: Granulomatous lymphadenitis Analgesia: GETA Sedation: GETA Procedure: The Olympus video bronchoscope and EBUS scope were used for this procedure Initially the flexible bronchoscope was used for evaluation of the airways. The ET tube was notably 3 cm above the level of the chastity. Trachea: Visualized portion of the trachea was anatomically within normal limits Chastity: Anatomically within normal limits Right bronchial tree: Right mainstem bronchus: Anatomically within normal limits Right upper lobe: Anatomically within normal limits Bronchus intermedius: Anatomically within normal limits Right middle lobe: Anatomically within normal limits Right lower lobe: Anatomically within normal limits Findings: No significant findings noted Left bronchial tree: Left mainstem bronchus: Anatomically within normal limits Left upper lobe: Anatomically within normal limits Lingula: Anatomically within normal limits Left lower lobe: Anatomically within normal limits Findings: No significant findings noted EBUS/AQUILINO: FNA Ava Stations: 7: # of passes 3 4R: # of passes 5 BAL: Right middle lobe EBL: None Complications: None Follow-up: PACU
[2017-07-10] MEDS ORDERED: NEOSTIGMINE METHYLSULFATE 5 MG/5 ML SYR ONE (13:40)
[2017-07-10] MEDS ORDERED: ONDANSETRON INJ 2 MG/ML 2 ML VIAL ONE (13:40)
[2017-07-10] MEDS ORDERED: GLYCOPYRROLATE INJ 0.2 MG/ML VIAL ONE (13:40)
[2017-07-10] MEDS: FENTANYL CITRATE INJ 50 MCG/1 ML 2 ML VIAL IV PRN ×2 (13:48→13:53)
--- NOTE | 2017-07-10 14:02 | Anesthesiology Progress Note ---
Anesthesia Post Op Note Date & Time Jul 10, 2017 at 14:02 Vital Signs Pain Intensity: 4 Vital Signs Past 12 Hours Date Time Temp Pulse Resp B/P (MAP) Pulse Ox O2 Delivery O2 Flow Rate FiO2 07/10/17 13:50 69 16 112/73 100 Nasal Cannula 3 07/10/17 13:40 62 16 111/75 100 Nasal Cannula 3 07/10/17 13:30 36.6 68 16 119/68 99 Oxymask 5 07/10/17 08:45 Room Air 07/10/17 07:50 36.2 70 18 100/64 (76) 97 Room Air Notes Mental Status: alert / awake / arousable, participated in evaluation Pt Amnestic to Procedure: Yes Nausea / Vomiting: adequately controlled Pain: adequately controlled Airway Patency, RR, SpO2: stable & adequate BP & HR: stable & adequate Hydration State: stable & adequate Anesthetic Complications: no major complications apparent
[2017-07-10 14:45] VITALS: BP 106/67; PULSE 64; TEMP 36.7; O2SAT 97
[2017-07-10 14:49] VITALS: BP 103/64; PULSE 58; TEMP 36.7; O2SAT 99
[2017-07-10 15:00] VITALS: BP 109/63; PULSE 77; TEMP 36.4; O2SAT 99
[2017-07-10 15:30] VITALS: BP 105/61; PULSE 66; TEMP 36.5; O2SAT 98
[2017-07-10] MEDS: AZITHROMYCIN 250 MG TAB PO SCH (16:18)
[2017-07-10] MEDS: OXYCODONE/ACETAMINOPHEN 5-325 TAB PO PRN (16:19)
[2017-07-10] MEDS ORDERED: PRD10 PO (17:49)
[2017-07-10] MEDS ORDERED: OMEP20TA PO (17:54)
--- NOTE | 2017-07-10 17:55 | Discharge Summary ---
Discharge Summary Date of Service Jul 10, 2017. Discharge Summary Admission Date: Jul 06, 2017 at 16:42 Discharge Date: Jul 10, 2017 Discharge Disposition: Home Principal Diagnosis: CHEST AND ABDOMEN LYMPH NODE ENLARGEMENT Procedures: CT of abdomen/ chest: Large number of hepatic and splenic hypodense lesions with mild lymphadenopathy within the chest abdomen and pelvis and multiple nodular airspace opacities within the lung bases Procedures Performed: Endobronchial ultrasound, flexible bronchoscopy with bronchil washings and needle biopsies Consultations: rheumatology Neurology Pulmonology Medication Reconciliation New Medications: Omeprazole (Omeprazole) 20 Mg Tab 1 TAB PO DAILY for 90 Days, #90 TAB 1 Refill Prednisone (Prednisone) 10 Mg Tab 30 MG PO DAILY for 30 Days, #90 TABS 2 Refills Discontinued Medications: Ibuprofen (Advil) 200 Mg Tab 200 MG PO, TAB Referrals At Discharge Follow up Referrals: Client Liaison Referral - Within 2 Weeks with Jose Luis Jarquin MD Admission Information HPI (per Admitting provider): This is a 32-year-old male with no known prior medical history. Has not been following with any physician in the past 20 years. ER for evaluation of painful swelling nodes on right inguinal region. Patient mentions he had swelling approximately 6-7 years ago and then they disappeared. For the last few weeks he noticed more weak and fatigue night sweats intermitted fever chills. Developed very painful lymphadenopathy on the right groin region pain radiation radiates down to his scrotum and also inner part of the right thigh. Patient denies of any trauma or injury. Was diagnosed with influenza a week ago evaluated at urgent care , completed Tamiflu Continues to have dry cough persistent malaise weakness ,body aches and joint pain. CT abdomen pelvis contrast study done in the ER showed multiple less than centimeter hepatic and splenic hypodense lesion, with lymphadenopathy in the chest abdomen and pelvis concerned for lymphoma versus sarcoidosis. Testicular ultrasound was negative for any mass. Patient denies of any recent travel history Denies of history of intravenous drug abuse Was in [facility] as a teenager At present unemployed smokes a pack of cigarettes a day for last 10-15 years Chews tobacco Physical Exam (per Admitting): General Appearance: no apparent distress, + thin Head: normocephalic, atraumatic Eyes: normal inspection, PERRL, EOMI, sclerae normal ENT: normal ENT inspection, hearing grossly normal Neck: + adenopathy present (History of cervical adenopathy) Respiratory/Chest: chest non-tender, lungs clear, normal breath sounds, no respiratory distress Cardiovascular: regular rate, rhythm, no edema, no JVD, no murmur Abdomen/GI: normal bowel sounds, non tender, soft Back: no CVA tenderness Extremities/Musculoskelatal: normal capillary refill, no pedal edema Neurologic/Psych: no motor/sensory deficits, alert, oriented x 3, + depressed affect Lymphatic: + axillary node abnormality, + cervical node abnormality, + inguinal node abnormality (Right inguinal area and multiple lymph nodes/tender to palpate /no overlying skin erythema noted) Hospital Course 1. Abdominal/pulmonary lymphadenopathy: -Presented with months of weakness fatigue night sweats -Painful right groin lymphadenopathy -CT of abdomen/ chest: Large number of hepatic and splenic hypodense lesions with mild lymphadenopathy within the chest abdomen and pelvis and multiple nodular airspace opacities within the lung bases LDH level elevated Hepatitis screen negative Angiotensin-converting enzyme level ordered for sarcoidosis-results pending Peripheral smear: Shows mild neutropenia, normal lymphocytes, red cells -No atypical lymphocytes, red cells noted Surgical consult for lymph node biopsy Appreciate input from hematology oncology Patient will need to follow-up with hematology oncology in office after biopsy report available will be scheduled for outpatient PET-CT scan Pulmonology consulted for mediastinal lymphadenopathy -Status post bronchoscopic biopsy/endoscopic ultrasound biopsy -Initial frozen section showed noncaseating granuloma suggestive of sarcoid -Final pathology pending -Patient will be discharged home today: With prednisone 30 mg daily -Outpatient follow-up with pulmonology in 2-3 weeks to discuss regarding pathology report/treatment options 2. Hyponatremia Due to dehydration, poor p.o. intake Corrected with IV fluids Patient is encouraged to increase p.o. intake 3. Nonproductive cough. Symptom improved CT chest shows possible bronchitis with tree-in-bud appearance Discussed with pulmonology possible symptoms secondary to fundal region Does not require antibiotic treatment 4. Tobacco abuse disorder -Smoking cessation counseling provided Ordered nicotine patch CODE STATUS: Full code DVT PROPHYLAXIS Refused Subcu Lovenox Orders for SCDs and teds Ambulate DISPOSITION Stable to be discharged home today Outpatient follow-up with pulmonology Dr. Jarquin -Need to establish care with a family physician for continued medical care Total time spent on discharge = 35 MINS This includes examination of the patient, discharge planning, medication reconciliation, and communication with other providers. Discharge Instructions DI: Medical v5 Discharge Instructions Date of Service Jul 10, 2017. Admission Reason for Admission: Lymphadenopathy Discharge Discharge Diagnosis / Problem: CHEST AND ABDOMEN LYMPH NODE ENLARGEMENT Discharge Goals Goal(s): Decrease discomfort, Increase independence, Improve disease control, Diagnostic testing, Therapeutic intervention Activity Recommendations Activity Limitations: resume your previous activity . Instructions / Follow-Up Instructions / Follow-Up NEED TO ESTABLISH CARE WITH FAMILY PHYSICIAN PLEASE SCHEDULE 1 WEEK HOSPITAL FOLLOW UP FOLLOWUP WITH PULMONOLOGY DR JARQUIN /DR ETIENNE IN 2-3 WEEKS RESULT OF YOUR LUNG AND LYMPH NODE BIOPSY WILL BE DISCUSSED AT PULMONOLOGY OFFICE PLEASE CALL OFFICE FOR APPOINTMENT , CONTINUE TO TAKE PREDNISONE 30 MG DAILY TILL SEEN BY DESK ASSISTANT DO NOT TAKE MOTRIN , ADVIL -CAN CAUSE WORSENING OF ACID REFLUX ORDERED FOR OMEPRAZOLE 20 MG DAILY NEED TO QUIT SMOKING THE EARLIEST POSSIBLE Current Hospital Diet Patient's current hospital diet: Regular Diet Discharge Diet Recommended Diet: Regular Diet Procedures Procedures Performed: Endobronchial ultrasound, flexible bronchoscopy with bronchil washings and needle biopsies Pending Studies Studies pending at discharge: yes List of pending studies: PATHOLOGY RESULT OF BRONCHIAL WASHING AND NEEDLE BIOPSY Medical Emergencies . Who to Call and When: Medical Emergencies: If at any time you feel your situation is an emergency, please call 911 immediately. . Non-Emergent Contact Non-Emergency issues call your: Primary Care Provider . . "Provider Documentation" section prepared by Ashtyn Pedroza. .
[2017-07-10 17:56] VITALS: BP 105/61; PULSE 66; TEMP 36.5; O2SAT 98
== END 2017-07-10 18:10 | disposition home or self-care (01) | DRG 803 ==
LOC: C.EDB 12:39 → C.4E 16:42 → UNDOADMIN 16:42 → ENRESERV 17:34
PROVIDERS: ADMIT Hospitalist; ATTEND Hospitalist
PROC: 0B9D8ZX Drainage of Right Middle Lung Lobe, Via Natural or Artificial Opening Endoscopic, Diagnostic (ICD-10-PCS; principal; 2017-07-10 12:30)
PROC: 07B74ZX Excision of Thorax Lymphatic, Percutaneous Endoscopic Approach, Diagnostic (ICD-10-PCS; principal; 2017-07-10 12:30)
DX: I88.8 Other nonspecific lymphadenitis (principal); E87.1 Hypo-osmolality and hyponatremia; R59.1 Generalized enlarged lymph nodes; E86.0 Dehydration; R05 Cough; R61 Generalized hyperhidrosis; Z79.899 Other long term (current) drug therapy; F17.210 Nicotine dependence, cigarettes, uncomplicated; F17.220 Nicotine dependence, chewing tobacco, uncomplicated